=== PATIENT | male | born 1940 | race Caucasian/White ===

== ENCOUNTER → 2017-05-07 | Outpatient (REF) | payer OTHER ==
[~2017-05-07] MED LIST: ACET1TAB17 PO; ALDA25TA2 PO; ASPI1TAB PO; DEMA20TA6 PO; DOXY-278 PO; FERR1TAB8 PO; FERR325T3 PO; FURO40TA2 PO; FURO80TA2 PO; GABA-279 PO; INSUH10VL SC; INSULANT SC; ISOS30TA4 PO; LISI-538 PO; LISI40TAB PO; LOPE2CA PO; METO12TA PO; METO25TAB PO; MUCI600T37 PO; PANT40TA2 PO; SIMV10TA2 PO; TRAM50TA2 PO; TROS20TA3 PO; VITA-112 PO
[2017-05-07 19:59] LABS: PERCENT SATURATION 13.2 % (19.7-50.0)
== END ==
LOC: M LAB REF 16:49
PROVIDERS: ATTEND Internal Medicine Nephrology
DX: N18.4 Chronic kidney disease, stage 4 (severe) (principal); D63.1 Anemia in chronic kidney disease; E11.22 Type 2 diabetes mellitus with diabetic chronic kidney disease

== ENCOUNTER 2017-05-17 08:35 | Outpatient (CLI) | payer OTHER ==
[~2017-05-17] VITALS: Ht 188 cm; Wt 154.5 kg
[~2017-05-17 08:35] MED LIST changes: -ALDA25TA2 PO; -DEMA20TA6 PO; -DOXY-278 PO; -FERR1TAB8 PO; -FERR325T3 PO; -FURO80TA2 PO; -GABA-279 PO; -LISI-538 PO; -LOPE2CA PO; -MUCI600T37 PO; -PANT40TA2 PO; -TRAM50TA2 PO
[2017-05-17] MEDS ORDERED: IRON SUCROSE 475 MG in NS 250 ML IV ONE (09:00)
[2017-05-17] MEDS ORDERED: IRON SUCROSE 25 MG in NS 50 ML IV ONE (09:00)
[2017-06-16] MEDS ORDERED: GABA-279 PO (03:12)
[2017-06-16] MEDS ORDERED: FERR325T3 PO (03:13)
[2017-06-16] MEDS ORDERED: LISI-538 PO (03:55)
[2017-06-16] MEDS ORDERED: TRAM50TA2 PO (03:55)
[2017-06-16] MEDS ORDERED: FURO80TA2 PO (03:55)
[2017-06-16] MEDS ORDERED: ISOS30TA4 PO (03:55)
[2017-06-21] MEDS ORDERED: DEMA20TA6 PO (10:00)
[2017-06-21] MEDS ORDERED: ALDA25TA2 PO (10:00)
[2017-06-21] MEDS ORDERED: FERR1TAB8 PO (10:00)
[2017-06-21] MEDS ORDERED: LOPE2CA PO (10:00)
[2017-06-21] MEDS ORDERED: MUCI600T37 PO (10:00)
[2017-06-21] MEDS ORDERED: PANT40TA2 PO (10:00)
[2017-06-21] MEDS ORDERED: DOXY-278 PO (10:00)
== END 2017-05-17 14:45 | disposition home or self-care (01) ==
LOC: M INFU 08:35
PROVIDERS: ATTEND Internal Medicine Nephrology
DX: D50.9 Iron deficiency anemia, unspecified (principal); Z87.891 Personal history of nicotine dependence; Z96.1 Presence of intraocular lens; Z79.82 Long term (current) use of aspirin; Z79.4 Long term (current) use of insulin; Z79.899 Other long term (current) drug therapy
CPT/HCPCS: 96365; 96366; J1756

== ENCOUNTER → 2017-05-23 | Outpatient (CLI) | payer OTHER ==
[~2017-05-23] MED LIST changes: +ALDA25TA2 PO; +DEMA20TA6 PO; +DOXY-278 PO; +FERR1TAB8 PO; +FERR325T3 PO; +FURO80TA2 PO; +GABA-279 PO; +LISI-538 PO; +LOPE2CA PO; +MUCI600T37 PO; +PANT40TA2 PO; +TRAM50TA2 PO
--- NOTE | 2017-05-23 12:51 | REP ---
Renal and bladder ultrasound: The kidneys are normal size. Right kidney measures 4.4 x 7.3 x 6.3 cm. Left kidney measures 4.7 months and 2 x 6.2 cm. There is normal echogenicity of the right renal cortex. Left renal cortex is hyperechoic. There is no hydronephrosis on the right on the left. There is a 1.2 cm left renal upper pole cyst versus artifact from a patel. No renal masses are identified. Calcified atheroma in renal vessels is identified. No calculi are identified. Impression: Left renal upper pole cyst. The left renal cortex is hyperechoic. No masses or calculi. No hydronephrosis. Bladder ultrasound: The filled bladder contains for an 52 ml of fluid. Postvoid bladder contains 81 ml fluid. Postvoid residual is 18%. No bladder wall masses or cysts are identified by ultrasound. Signed by Shayne Albert MD 05/23/2017 12:42 P
== END ==
LOC: M RAD 10:38
PROVIDERS: ATTEND Internal Medicine Nephrology
DX: N18.4 Chronic kidney disease, stage 4 (severe) (principal)

== ENCOUNTER 2017-07-16 12:05 | Inpatient (IN) | payer MEDICARE, OTHER ==
[~2017-07-16] VITALS: Ht 188 cm; Wt 154.2 kg
[2017-07-16] MEDS ORDERED: FEBU40TA PO (12:29)
[2017-07-16] MEDS ORDERED: METO25TA PO (12:29)
[2017-07-16] MEDS ORDERED: PANTOPRAZOLE 40MG INJ (PROTONIX) (C9113) IV ONE (13:15)
--- NOTE | 2017-07-16 14:02 | REP ---
Clinical: Dyspnea on exertion . Comparison: 06/16/2017 . Technique: PA and lateral. Findings: The mediastinum and cardiac silhouette are stable and mild cardiomegaly is again suggested. The lung bashir are clear and without acute consolidation, effusion, or pneumothorax. The skeletal structures are intact and normal. Impression: 1. No acute cardiopulmonary process. Signed by Tavon Samayoa MD 07/16/2017 01:53 P
[2017-07-16] MEDS ORDERED: SIMV20TA2 PO (14:24)
[2017-07-16] MEDS ORDERED: PANT40TA2 PO (14:24)
[2017-07-16] MEDS ORDERED: TORS20TA2 PO (14:24)
[2017-07-16] MEDS ORDERED: METO50TA7 PO (14:24)
[2017-07-16 14:32] LABS: BASO % 0.4 % (0.0-1.0); EOS # 0.1 10^3/uL (0.0-0.50); EOS % 1.9 % (0.0-3.0); IMMATURE GRANULOCYTE % 0.6 % (0-0); LYMPH # 0.9 10^3/uL (1.5-4.5); LYMPH % 12.4 % (24.0-44.0); MEAN CORPUSCULAR HEMOGLOBIN 28.9 pg (27.0-33.0); MEAN CORPUSCULAR HGB CONC 31.1 g/dl (32.0-36.5); MEAN CORPUSCULAR VOLUME 93.2 fl (80.0-96.0); MONO # 0.6 10^3/uL (0.0-0.8); MONO % 9.2 % (0.0-5.0); NEUTROPHILS # 5.2 10^3/uL (1.8-7.7); NEUTROPHILS % 75.5 % (36.0-66.0); PLATELET COUNT, AUTOMATED 120 10^3/uL (150-450); RED CELL DISTRIBUTION WIDTH 16.2 % (11.5-14.5); WHITE BLOOD COUNT 6.9 10^3/uL (4.0-10.0)
[2017-07-16 14:38] LABS: INR 1.31
[2017-07-16 14:43] LABS: ALBUMIN 2.6 GM/DL (3.2-5.2); ALBUMIN/GLOBULIN RATIO 0.81 (1.00-1.93); BILIRUBIN,DIRECT 0.3 MG/DL (0.0-0.2); BILIRUBIN,TOTAL 0.7 MG/DL (0.2-1.0); CALCIUM LEVEL 8.5 MG/DL (8.8-10.2); CREATININE FOR GFR 2.6 MG/DL (0.70-1.30); GLOMERULAR FILTRATION RATE 25.5 (>42); POTASSIUM SERUM 4.3 MEQ/L (3.5-5.1); TOTAL PROTEIN 5.8 GM/DL (6.4-8.2)
[2017-07-16] MEDS ORDERED: PANTOPRAZOLE SODIUM 40 MG in D5W 50 ML IV SCH (15:45)
[2017-07-16] MEDS ORDERED: ONDANSETRON 4MG/2ML VIAL (J2405) IV PRN (17:30)
[2017-07-16] MEDS ORDERED: MOM 30ML SUSPENSION UDC PO ONE (17:45)
[2017-07-16] MEDS ORDERED: ISOSORBIDE MON. (IMDUR) 30 MG XR TAB PO ONE (18:00)
[2017-07-16] MEDS: HumaLOG INSULIN (NovoLOG) PER UNIT SC SCH (18:00)
[2017-07-16] MEDS ORDERED: DEXTROSE 50% 50 ML SYRINGE IV PRN (18:15)
[2017-07-16] MEDS ORDERED: GLUCAGON FOR INJ 1 MG VIAL (J1610) SC PRN (18:15)
[2017-07-16] MEDS ORDERED: FUROSEMIDE 100 MG/10 ML VIAL (J1940) IV ONE (18:15)
[2017-07-16] MEDS ORDERED: GLUCOSE 4 GM CHEW TABLET PO PRN (18:15)
--- NOTE | 2017-07-16 18:37 | ECGEPIP ---
Stationary ECG Study [facility] - ED Test Date: 2017-07-16 Pat Name: MOLINA CRUZ Department: Room: - Gender: M Planning Advisor: patty : 1940 Requested By: LISSETT Rodriguez Order Number: [id number] Reading MD: Sourav Salvador Measurements Intervals [place] Rate: 65 P: -20 HI: 126 QRS: 28 QRSD: 145 T: -8 QT: 492 QTc: 515 Interpretive Statements SINUS RHYTHM RIGHT BUNDLE BRANCH BLOCK SIMILAR TO 06/16/17 Electronically Signed On 07-16-2017 18:37:38 EST by Sourav Salvador
[2017-07-16] MEDS ORDERED: GOLYTELY SOLN 4000 ML BTL PO ONE (19:00)
--- NOTE | 2017-07-16 19:15 | HPEPDOC ---
General Date of Admission 07/16/17 Other Providers PCP: Dr. Scar Galeana Nephrology: Dr. Emory Aggarwal Orthopaedic: Dr. Audi García Press Leader: Dr. Rush Podiatry: Dr. 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 PMH significant for CHF, HLD, HTN, ASIF on CPAP, CKD stage III, and DM2 insulin-dependent. Patient admits to dark stools and malaise for over a month. Associated with nausea, dizziness, and limited walking due to generalized fatigue. Patient has also had diarrhea for the past 2 days, and a decreased appetite over the past year, and a 17 pound weight loss in the past month. Patient reports he has never had a colonoscopy or an EGD due to personal hesitance, but is willing to get a colonoscopy during this admission. Patient is on iron pills, and has a history of iron transfusions and PRBC transfusions. All other ROS is negative, including chest pain, shortness of breath, vomiting, abdominal pain, bright red blood per rectum , hematuria. In the ED, H&H were 5.5 and 17.7 respectively, and Hemoccult positive. BUN/ creatinine were 69 and 2.6 respectively, and patient had hypertensive urgency with SBP above 200. Pt was transfused 2 units PRBC in ED and started on Protonix drip. Home Medications Scheduled Cholecalciferol (Vitamin D-1000) 1,000 Unit Tab, 1,000 UNIT PO QHS, (Reported) Febuxostat (Uloric) 40 Mg Tab, 40 MG PO DAILY, (Reported) Ferrous Sulfate (Ferrous Sulfate) 325 Mg Tab, 325 MG PO DAILY, (Reported) Gabapentin (Gabapentin) 100 Mg Cap, 200 MG PO QHS, (Reported) Insulin Aspart (Novolog) 100 U/Ml Inj, 1 DOSE SC AC, (Reported) PER SLIDING SCALE Insulin Glargine (Lantus) 1 Units/0.01 Ml Susp, 70 UNITS SC QHS, (Reported) Isosorbide Mononitrate (Isosorbide Mononitrate ER) 60 Mg Tab, 60 MG PO DAILY Metolazone (Metolazone) 2.5 Mg Tab, 2.5 MG PO Q2D, (Reported) Metoprolol Tartrate (Metoprolol Tartrate) 50 Mg Tab, 50 MG PO BID Pantoprazole Sodium (Pantoprazole Sodium) 40 Mg Tab, 40 MG PO DAILY, (Reported) Simvastatin (Simvastatin) 20 Mg Tab, 10 MG PO QHS, (Reported) Torsemide (Torsemide) 20 Mg Tab, 40 MG PO BID Trospium Chloride (Trospium Chloride) 20 Mg Tab, 20 MG PO QHS, (Reported) Scheduled PRN Acetaminophen (Acetaminophen) 325 Mg Tab, 650 MG PO Q6H PRN for PAIN, (Reported) Tramadol HCl (Tramadol HCl) 50 Mg Tab, 50 MG PO Q4H PRN for PAIN, (Reported) FOR SEVERE PAIN ONLY Allergies Coded Allergies: No Known Allergies (Unverified , 12/28/15) Past Medical History Medical History CHF HLD HTN ASIF, CPAP at night GERD BPH CTD stage III DM 2, insulin-dependent Overactive bladder, incontinent Right bundle-branch block Gout Chronic b/l LE edema Surgical History b/l cataract Family History Father: Stroke Mother: NC 3 brothers: All diabetic No cancers Social History Denies alcohol, smoking, drugs Lives at home with Review of Symptoms Constitutional: Reports: Fatigue, Lethargy, Denies: Chills, Fever, Night Sweats, Weakness Eyes: Denies: Pain, Vision change ENT: Denies: Head Aches, Ear Pain, Dysphagia, Epistaxis Skin: Reports: Lesions, Bruising, Denies: Rash Pulmonary: Denies: Dyspnea, Cough Cardiovascular: Denies: Chest Pain, Palpitations, Edema, Lt Headedness Gastrointestinal: Reports: Nausea, Diarrhea, Melena (dark tarry stools), Denies: Vomiting, Abdominal Pain, Constipation, Hematochezia Genitourinary: Denies: Hematuria Hematologic: Denies: Bruising, Bleeding Excessively Endocrine: Denies: Heat Intolerance, Cold Intolerance Musculoskeletal: Reports: Shoulder Pain (left, chronic), Joint Pain (b/l knees) Neurological: Denies: Weakness, Numbness Physical Examination General Exam: Positive: Alert, Cooperative, No Acute Distress Eye Exam: Positive: Conjunctiva & lids normal, EOMI, Negative: Sclera icteric, Ptosis ENT Exam: Positive: Atraumatic, Mucous membr. moist/pink, Tongue Midline, Other ENT (upper and lower dentuers) Neck Exam: Positive: Supple, +2 carotid pulse wo bruit, Negative: Lymphadenopathy Chest Exam: Positive: Clear to auscultation, Diminished, Negative: Wheezing Heart Exam: Positive: Rate Normal, Regular Rhythm, Normal S1, Normal S2, Other (distant heart & lung sounds due to body habitus) Abdomen Exam: Positive: Normal bowel sounds, Soft, Other (protuberant), Negative: Tenderness Extremity Exam: Positive: Normal pulses (2+ radial b/l), Swelling (LE chronic) , Negative: Cyanosis, Edema, Tenderness Skin Exam: Positive: Nl turgor and temperature, Lesion (b/l LE shins) Neuro Exam: Positive: Normal Speech, Strength at 5/5 X4 ext, Normal Tone, Sensation Intact Psych Exam: Positive: Mental status NL, Mood NL, Memory Intact, Oriented x 3 Vital Signs Vital Signs Date Time Temp Pulse Resp B/P (MAP) Pulse Ox O2 Delivery O2 Flow Rate FiO2 07/16/17 14:39 68 18 164/68 (100) 97 Nasal Cannula 2.0 07/16/17 12:20 98.6 Laboratory Data Labs 24H Laboratory Tests 2 07/16/17 13:58: Immature Granulocyte % (Auto) 0.6H, White Blood Count 6.9, Red Blood Count 1.90L , Hemoglobin 5.5*L, Hematocrit 17.7L, Mean Corpuscular Volume 93.2, Mean Corpuscular Hemoglobin 28.9, Mean Corpuscular Hemoglobin Concent 31.1L, Red Cell Distribution Width 16.2H, Platelet Count 120L, Neutrophils (%) (Auto) 75.5H , Lymphocytes (%) (Auto) 12.4L, Monocytes (%) (Auto) 9.2H, Eosinophils (%) (Auto ) 1.9, Basophils (%) (Auto) 0.4, Neutrophils # (Auto) 5.2, Lymphocytes # (Auto) 0.9L, Monocytes # (Auto) 0.6, Eosinophils # (Auto) 0.1, Basophils # (Auto) 0.0, Immature Granulocyte # (Auto) 0.0, Nucleated Red Blood Cells % (auto) 0.0, Prothrombin Time 16.6H, Prothromb Time International Ratio 1.31, Activated Partial Thromboplast Time 28.3, Anion Gap 11, Glomerular Filtration Rate 25.5L, Calcium Level 8.5L, Aspartate Amino Transf (AST/SGOT) 31, Alanine Aminotransferase (ALT/SGPT) 30, Alkaline Phosphatase 69, Total Bilirubin 0.7, Direct Bilirubin 0.3H, Total Protein 5.8L, Albumin 2.6L, Albumin/Globulin Ratio 0.81L CBC/BMP Laboratory Tests 07/16/17 13:58 Red Blood Count 1.90 L, Mean Corpuscular Volume 93.2, Mean Corpuscular Hemoglobin 28.9, Mean Corpuscular Hemoglobin Concent 31.1 L, Red Cell Distribution Width 16.2 H, Neutrophils (%) (Auto) 75.5 H, Lymphocytes (%) (Auto ) 12.4 L, Monocytes (%) (Auto) 9.2 H, Eosinophils (%) (Auto) 1.9, Basophils (%) (Auto) 0.4, Neutrophils # (Auto) 5.2, Lymphocytes # (Auto) 0.9 L, Monocytes # ( Auto) 0.6, Eosinophils # (Auto) 0.1, Basophils # (Auto) 0.0 Assessment/Plan Symptomatic anemia Patient was noted to have hemoglobin of 5 while at nephrology's office. Admits to fatigue and dark stools for over a month. Has history of blood and iron transfusions in previous admissions. Reportedly Hemoccult positive in ED. CXR negative. transfused 2U PRBC in ED, follow H&H q6h orthostatic vitals q8h on Protonix drip Dr. Corey consulted. Appreciated GI's assistance hold home Ferrous sulfate HTN Urgency SBP > 200 on admission will increase home Imdur from 30 to 60mg continue home Metoprolol start IV Hydralazine 10mg q6h for SBP>150 DM2, insulin-dependant hold home meds. Start ISS with ~half his home Levemir dose at 25U inpatient continue home Gabapentin fingersticks q6h CKD III currently appears ~baseline Cr, but will be holding home Metolazone & Torsemide as pt will be NPO for scope hold fluids as pt will be transfused PRBC and scoped Dr. Aggarwal consulted. Appreciate Nephrology's assistance HLD continue home statin Gout continue home Febuxostat Hx CHF no acute decompensation monitor fluid status as pt is transfused PRBC hold home Torsemide for for possible GI scope daily weights and I/O ASIF on ASIF protocol. May use home CPAP Overactive bladder continue home Trospium DVT ppx MIRA/SCD. Avoid anticoagulation due to anemia/bleed DISPOSITION: will admit to hospital under Dr. Quintana's service. Plan / VTE VTE Prophylaxis Ordered?: Yes (MIRA/SCD) GME ATTESTATION GME ATTESTATION My faculty preceptor for this patient encounter was physically present during the encounter and was fully available. All aspects of the patient interview, examination, medical decision making process, and medical care plan development were reviewed and approved by the faculty preceptor. The faculty preceptor is aware and concurs with the plan as stated in the body of this note and will attest to such by his/her cosignature. ATTENDING NOTE I have both independently examined this patient as well as reviewed the H&P. I have discussed in detail with the resident the findings and plan of treatment as documented in the residents note. I will continue to follow the patient and offer further guidance to the patients care as necessary during this hospital stay. JANICE Horn MD, DO Jul 16, 2017 17:22 STERLING ELIZONDO MD Jul 23, 2017 09:28
[2017-07-16] MEDS ORDERED: NS 1,000 ML IV SCH (20:30)
[2017-07-16] MEDS: SIMVASTATIN 10 MG TAB PO SCH (21:00)
[2017-07-16] MEDS: METOPROLOL TART 25 MG TABLET PO SCH (21:00)
[2017-07-16] MEDS: TROSPIUM 20 MG TAB PO SCH (21:00)
[2017-07-16] MEDS: GABAPENTIN 100 MG CAP PO SCH (21:00)
[2017-07-16] MEDS: VITAMIN D 1,000 INTERNATIONAL UNITS TABLET PO SCH (21:00)
[2017-07-16] MEDS: LEVEMIR (INSULIN DETEMIR) 1 UNITS/0.01ML SC SCH (21:00)
[2017-07-16] MEDS: PANTOPRAZOLE SODIUM 40 MG in D5W 50 ML IV SCH ×2 (21:05→23:00)
[2017-07-17] VITALS (19 sets, daily range): BP systolic 140–198; BP diastolic 58–92
[2017-07-17] MEDS: PANTOPRAZOLE SODIUM 40 MG in D5W 50 ML IV SCH ×5 (04:03→21:42)
[2017-07-17] MEDS ORDERED: GOLYTELY SOLN 4000 ML BTL PO ONE (05:00)
[2017-07-17] MEDS: HumaLOG INSULIN (NovoLOG) PER UNIT SC SCH ×5 (06:15→21:41)
[2017-07-17] MEDS: hydrALAZINE INJ 20 MG/ML VIAL IV SCH ×4 (06:17→17:00)
[2017-07-17] MEDS: METOPROLOL TART 25 MG TABLET PO SCH ×2 (09:00→21:26)
[2017-07-17] MEDS ORDERED: FERROUS SULFATE 325MG TAB PO SCH (09:00)
[2017-07-17] MEDS ORDERED: metOLazone 2.5 MG TAB PO SCH (09:00)
[2017-07-17] MEDS: FEBUXOSTAT 40 MG TABLET (ULORIC) PO SCH (09:00)
[2017-07-17] MEDS ORDERED: ISOSORBIDE MON. (IMDUR) 30 MG XR TAB PO SCH (09:00)
[2017-07-17] MEDS ORDERED: TORSEMIDE 20 MG TAB PO SCH (09:00)
[2017-07-17] MEDS: ISOSORBIDE MON. (IMDUR) 30 MG XR TAB PO SCH (09:01)
[2017-07-17] MEDS ORDERED: PROPOFOL 200 MG/20 ML VIAL As Ordered ONE ×2 (13:28→15:16)
[2017-07-17] MEDS ORDERED: LIDOCAINE 2% INJ 100 MG/5 ML SDV (FOR ANES.) As Ordered ONE (13:28)
[2017-07-17 14:13] LABS: MEAN CORPUSCULAR HEMOGLOBIN 29.5 pg (27.0-33.0); MEAN CORPUSCULAR HGB CONC 33.8 g/dl (32.0-36.5); MEAN CORPUSCULAR VOLUME 87.2 fl (80.0-96.0); PLATELET COUNT, AUTOMATED 106 10^3/uL (150-450); RED CELL DISTRIBUTION WIDTH 16.4 % (11.5-14.5); WHITE BLOOD COUNT 7.9 10^3/uL (4.0-10.0)
[2017-07-17 14:35] LABS: CALCIUM LEVEL 8.3 MG/DL (8.8-10.2); CREATININE FOR GFR 2.38 MG/DL (0.70-1.30); GLOMERULAR FILTRATION RATE 28.3 (>42); MAGNESIUM LEVEL 1.8 MG/DL (1.8-2.4); PHOSPHORUS LEVEL 2.6 MG/DL (2.5-4.9)
--- NOTE | 2017-07-17 15:18 | ROOR ---
Patient Name: Tomasa Robles Procedure Date: 07/17/2017 2:29 PM Date of : 1940 Age: 76 Room: [facility] Gender: Male Note Status: Finalized Procedure: Upper GI endoscopy Indications: Acute post hemorrhagic anemia, Iron deficiency anemia secondary to chronic blood loss, Iron deficiency anemia, Portal hypertension rule out esophageal varices Providers: Alhaji COREY MD Referring MD: Scar Galeana Md, Emory Aggarwal Do Requesting Provider: Medicines: Monitored Anesthesia Care Complications: No immediate complications. Procedure: Pre-Anesthesia Assessment: - The heart rate, respiratory rate, oxygen saturations, blood pressure, adequacy of pulmonary ventilation, and response to care were monitored throughout the procedure. The Endoscope was introduced through the mouth, and advanced to the third part of duodenum. The upper GI endoscopy was accomplished without difficulty. The patient tolerated the procedure well. Findings: The examined esophagus was normal. (no varices) Mild portal hypertensive gastropathy was found in the gastric antrum. The exam of the stomach was otherwise normal. (no varices) The examined duodenum was normal. Impression: - Normal esophagus. - Mild antral portal hypertensive gastropathy. - Stomach is otherwise normal. - Normal examined duodenum. - (no varices seen in esophagus nor in cardia) - No specimens collected. Recommendation: - Use sucralfate tablets 1 gram PO QID. - Use Prilosec (omeprazole) 40 mg PO BID. - Observe patient's clinical course. - Start/continue a Non-selective Beta Racquel such as Propranolol or Nadolol, titrate to heart rate. Alhaji Corey MD Alhaji COREY MD 07/17/2017 3:17:53 PM This report has been signed electronically. Number of Addenda: 0 Note Initiated On: 07/17/2017 2:29 PM Estimated Blood Loss: Estimated blood loss: none.
--- NOTE | 2017-07-17 15:23 | ROOR ---
Patient Name: Tomasa Robles Procedure Date: 07/17/2017 2:31 PM Date of : 1940 Age: 76 Room: [facility] Gender: Male Note Status: Finalized Procedure: Colonoscopy Indications: Acute post hemorrhagic anemia, Iron deficiency anemia secondary to chronic blood loss, Iron deficiency anemia Providers: Alhaji COREY MD Referring MD: Scar Galeana Md, Emory Aggarwal Do Requesting Provider: Medicines: Monitored Anesthesia Care Complications: No immediate complications. Procedure: Pre-Anesthesia Assessment: - The heart rate, respiratory rate, oxygen saturations, blood pressure, adequacy of pulmonary ventilation, and response to care were monitored throughout the procedure. The Colonoscope was introduced through the anus and advanced to the cecum, identified by appendiceal orifice and ileocecal valve. The colonoscopy was performed without difficulty. The patient tolerated the procedure well. The quality of the bowel preparation was good. Findings: The perianal and digital rectal examinations were normal. Six sessile polyps were found in the sigmoid colon and descending colon. The polyps were 4 to 7 mm in size. These polyps were removed with a cold snare. Resection and retrieval were complete. A 10 mm polyp was found in the splenic flexure. The polyp was sessile. Polypectomy was not attempted. Coagulation for tissue destruction using argon plasma at 0.8 liters/minute and 20 almazan was successful. Six sessile polyps were found in the ascending colon and cecum. The polyps were 4 to 6 mm in size. These polyps were removed with a cold snare. Resection and retrieval were complete. Multiple small-mouthed diverticula were found in the sigmoid colon. Internal hemorrhoids were found during retroflexion. The hemorrhoids were medium-sized. The exam was otherwise without abnormality on direct and retroflexion views. Impression: - Six 4 to 7 mm polyps in the sigmoid colon and in the descending colon, removed with a cold snare. Resected and retrieved. - One 10 mm polyp at the splenic flexure. Resection not attempted. Treated/ablated with argon plasma coagulation (APC). - Six 4 to 6 mm polyps in the ascending colon and in the cecum, removed with a cold snare. Resected and retrieved. - Mild diverticulosis in the sigmoid colon. - Internal hemorrhoids. - The examination was otherwise normal on direct and retroflexion views. Recommendation: - Telephone endoscopist for pathology results in 2 weeks. - If the pathology report reveals adenomatous tissue, then repeat the colonoscopy for surveillance of multiple adenomas in 1 year. Alhaji Corey MD Alhaji COREY MD 07/17/2017 3:22:59 PM This report has been signed electronically. Number of Addenda: 0 Note Initiated On: 07/17/2017 2:31 PM Estimated Blood Loss: Estimated blood loss: none.
--- NOTE | 2017-07-17 16:44 | CR ---
DATE OF CONSULTATION: 07/17/2017 REQUESTING PHYSICIAN: Bev Molina DO REASON FOR CONSULTATION: Acute kidney injury, chronic kidney disease and severe symptomatic anemia. HISTORY OF PRESENT ILLNESS: Mr. Robles is a 76-year-old gentleman with known history of morbid obesity, type 2 diabetes, hypertension, hyperlipidemia, obstructive sleep apnea (ASIF), stage III of chronic kidney disease and congestive heart failure (CHF). He was admitted to [facility] yesterday due to symptomatic anemia with hemoglobin 5.8. He did report black colored stools over a month. He did have some nausea and felt dizzy. Patient is also noticed to have worsening kidney function and a nephrology consultation was requested. The patient is seen this morning in his room in the progressive care unit. The patient is currently undergoing bowel prep for upper and lower endoscopy. He has received 2 units of packed RBCs through the night and receiving another 2 units of packed RBCs today. PAST MEDICAL/SURGICAL HISTORY: Significant for: 1. Morbid obesity. 2. Obstructive sleep apnea on CPAP. 3. Hypertension. 4. Type 2 diabetes. 5. Hyperlipidemia. 6. Congestive heart failure (CHF). 7. History of gastroesophageal reflux disease (GERD). 8. History of benign prostatic hypertrophy (BPH). 9. History of chronic kidney disease stage III to stage IV. 10. History of overactive bladder. 11. History of gout. 12. History of right bundle branch block. 13. History of chronic stasis lower extremities. PAST SURGICAL HISTORY: Significant for: 1. Bilateral cataract surgery. FAMILY HISTORY: Father had a stroke and mother had coronary artery disease with heart attack. Three brothers all have diabetes. There is no history of end stage renal disease in his family. PERSONAL/SOCIAL HISTORY: Patient is and lives with his . Denies any alcohol, smoking or drug use. REVIEW OF SYSTEMS: Patient denies any fever or chills. He did report about 15 pounds weight loss over the last few months. Ears, nose and throat are unremarkable. Patient denies any nosebleed or sore throat. He has no sinus problems. He did feel dizzy but denies any headaches. Cardiovascular system is significant for a history of congestive heart failure (CHF). He denies any chest pain or palpitations. Respiratory system negative for cough or hemoptysis. Gastrointestinal (GI) system is significant for poor appetite and nausea. He reported black colored stools over the last few weeks. There is on history of coffee ground vomiting. At present, he denies any abdominal pain. Genitourinary () systems is significant for a history of benign prostatic hypertrophy (BPH). The patient denies any dysuria or hematuria. Musculoskeletal system is significant for morbid obesity and chronic stasis in his lower extremities. Endocrine system is significant for type 2 diabetes. There is no history of thyroid problems. He does have secondary hyperparathyroidism. Neurological system is negative for seizures or stroke. Hematological system is significant for anemia. He is not on any anticoagulation at present. Psychosocial system negative for depression or anxiety. Skin is negative for rash or ulcers. MEDICATIONS: Home medications included: - vitamin D 1000 units daily - Uloric 40 mg daily - ferrous sulfate 325 mg daily - gabapentin 200 mg at bedtime - NovoLog insulin per sliding scale - Lantus insulin 70 units at bedtime - Imdur 30 mg daily - metolazone 2.5 mg every two days - metoprolol 50 mg by mouth half a tablet twice a day - Protonix 40 mg daily - simvastatin 20 mg at bedtime - torsemide 40 mg daily ALLERGIES: Patient has no known drug allergies. PHYSICAL EXAMINATION: Temperature 97.8 degrees Fahrenheit, heart rate 62 per minute, and respiratory rate 20 per minute. Blood pressure 140/62 mmHg and oxygen saturation 96% on room air. Head is atraumatic. Pupils equal and reactive to light and sclera is anicteric. Oral mucosa is moist and healthy and there is no thrush or ulcers. Ears, nose and throat are unremarkable. Neck is supple and jugular venous distention (JVD) is difficult to be assessed. Heart sounds are regular and there is no pericardial friction rub. Lungs sounds clear to auscultation with moderate bilateral air entry. Abdomen is obese and nontender. Bowel sounds are present. Extremities have no cyanosis or clubbing. He has chronic stasis changes on lower extremities. Skin has no other rash or ulcers. Neurologically, he is awake, alert and oriented times three. LABORATORY DATA: On admission, his WBC count was 6.9, hemoglobin 5.5, and hematocrit 17.7. Sodium 141, and potassium 4.3. BUN 69 and creatinine 2.60. Glucose 144 and calcium 8.5. His baseline creatinine is know to be about 2.5 to 2.8 mg. Chest x-ray done in the emergency room showed no acute cardiopulmonary process. PROBLEMS: 1. Severe symptomatic anemia, most likely related to blood loss. I do not feel that his anemia is entirely related to chronic kidney disease. The patient did report black colored stools. He is going to have upper and lower endoscopy. He has already received 2 units of packed RBCs last night and is receiving 2 more units today. CBC should be checked after transfusion. Further plans depending upon findings of upper and lower endoscopy, which is scheduled for later this afternoon. 2. Acute kidney injury superimposed on chronic kidney disease. Patient is known to have at least stage III of chronic kidney disease at baseline. Acute renal failure is most likely related to acute blood loss and possible hypovolemia. At present, his diuretics are on hold. I suggest to monitor closely while he is being hydrated. We will resume his diuretics as needed. 3. History of congestive heart failure (CHF). At present, volume status is well compensated or slightly over diuresed. Diuretics remain on hold. We will monitor closely and consider to resume his diuretics when indicated. 4. Hypertension. Blood pressure is well controlled. He remains on low dose hydralazine and Imdur. I thank you for involving me in the care of Mr. Robles. I will follow him along with you.
--- NOTE | 2017-07-17 17:35 | IPN ---
DATE: 07/17/2017 SUBJECTIVE: The patient is seen and examined in the room after his upper endoscopy and colonoscopy procedures. The patient does not remember much because he is still feeling groggy after the procedures. The patient feels very hungry and is asking to restart a diet. OBJECTIVE: VITAL SIGNS: Temperature is 98.1, pulse is 73, respiratory rate 20, blood pressure 178/76, pulse oximetry is 97% in room air. GENERAL: Morbidly obese. No sign of acute distress. Alert and oriented times three. HEENT: Normocephalic, atraumatic. Extraocular motor grossly intact. CARDIOVASCULAR: Positive S1, S2, regular rate. LUNGS: Clear to auscultation bilaterally. ABDOMEN: Obese, soft, nontender, nondistended. Bowel sounds present. EXTREMITIES: Positive swelling. No cyanosis. Chronic venous stasis changes noted. LABORATORY DATA: WBC is 7.9, hemoglobin 9, hematocrit 26.6, platelet count is 106. Sodium is 139, potassium 4, chloride 103, carbon dioxide 27, BUN 57, creatinine is 2.38, GFR is 28.3, fasting glucose is 213, calcium is 8.3, phosphorous is 2.6, magnesium 1.6. Colonoscopy report showed multiple polyps. Mild diverticulosis in the sigmoid colon. Internal hemorrhoids. Upper endoscopy report showed normal findings. ASSESSMENT AND PLAN: 1. Symptomatic anemia. On admission, the patient was found to have a hemoglobin of 5.5 with a hematocrit of 17.7. Since admission, the patient received five units of packed red blood cell transfusion, and the patient was brought down to the procedure room and the patient received an upper endoscopy and colonoscopy by Dr. Corey. No significant noted. Continue to monitor the patient on telemetry, diet is resumed. The patient is to start back on before meals and at bedtime sliding scale. 2. Congestive heart failure. Currently the patient is asymptomatic. Continue to monitor. No sign of fluid overload. 3. Hypertension. Patient is on hydralazine, isosorbide mononitrate and metoprolol tartrate. 4. Chronic kidney disease, stage III. Nephrology is assisting on case. Appreciate Dr. Aggarwal's input. 5. Gout. On Uloric. 6. History of left bundle branch block. 7. Insulin-dependent diabetes, on consistent carbohydrate diet, on sliding scale. 8. Obstructive sleep apnea (ASIF), on continuous positive airway pressure (CPAP) nightly. 9. Gastroesophageal reflux disease. 10. Hyperlipidemia. On simvastatin. 11. Hypertensive urgency on admission. Continue to monitor blood pressure. Dosage of Imdur was increased from 30 mg to 60 mg. The patient is on metoprolol. The patient is also on hydralazine 10 mg every 6 hours with holding parameter. 12. Deep vein thrombosis (DVT) prophylaxis. On compression.
[2017-07-17] MEDS: LEVEMIR (INSULIN DETEMIR) 1 UNITS/0.01ML SC SCH (21:00)
[2017-07-17] MEDS: GABAPENTIN 100 MG CAP PO SCH (21:27)
[2017-07-17] MEDS: SIMVASTATIN 10 MG TAB PO SCH (21:27)
[2017-07-17] MEDS: VITAMIN D 1,000 INTERNATIONAL UNITS TABLET PO SCH (21:27)
[2017-07-17] MEDS: TROSPIUM 20 MG TAB PO SCH (21:27)
[2017-07-18] VITALS (9 sets, daily range): BP systolic 140–187; BP diastolic 58–77
[2017-07-18 04:57] LABS: MEAN CORPUSCULAR HEMOGLOBIN 29.3 pg (27.0-33.0); MEAN CORPUSCULAR HGB CONC 33.2 g/dl (32.0-36.5); MEAN CORPUSCULAR VOLUME 88.2 fl (80.0-96.0); PLATELET COUNT, AUTOMATED 101 10^3/uL (150-450); RED CELL DISTRIBUTION WIDTH 16.6 % (11.5-14.5); WHITE BLOOD COUNT 8.3 10^3/uL (4.0-10.0)
[2017-07-18] MEDS: PANTOPRAZOLE SODIUM 40 MG in D5W 50 ML IV SCH ×3 (05:06→15:31)
[2017-07-18 05:16] LABS: CREATININE FOR GFR 2.32 MG/DL (0.70-1.30); GLOMERULAR FILTRATION RATE 29.1 (>42); MAGNESIUM LEVEL 1.7 MG/DL (1.8-2.4)
[2017-07-18] MEDS: hydrALAZINE INJ 20 MG/ML VIAL IV SCH ×4 (05:20→17:31)
[2017-07-18] MEDS ORDERED: MAGNESIUM OXIDE 400 MG TAB (MAG-OX) PO ONE (07:45)
[2017-07-18] MEDS: FEBUXOSTAT 40 MG TABLET (ULORIC) PO SCH (09:00)
[2017-07-18] MEDS ORDERED: PREVNAR 13 VACCINE SYRINGE (CPT CODE:90670) IM ONE (09:00)
[2017-07-18] MEDS: METOPROLOL TART 25 MG TABLET PO SCH (09:22)
[2017-07-18] MEDS: ISOSORBIDE MON. (IMDUR) 30 MG XR TAB PO SCH (09:23)
[2017-07-18] MEDS: HumaLOG INSULIN (NovoLOG) PER UNIT SC SCH ×4 (09:25→21:05)
[2017-07-18] MEDS ORDERED: TORSEMIDE 20 MG TAB PO ONE (10:00)
[2017-07-18] MEDS ORDERED: ALBUTEROL SULFATE 2.5 MG/0.5 ML INH NEB SOLN NEB PRN (12:30)
[2017-07-18] MEDS ORDERED: ACETAMINOPHEN TAB 650MG DOSE (2X325MG) PO PRN (14:45)
--- NOTE | 2017-07-18 19:39 | IPNPDOC ---
Text Note Date of Service The patient was seen on 07/18/17. NOTE SUBJECTIVE: The patient is seen and examined in the room. Discussed the result of scopes with the patient. OBJECTIVE: VITAL SIGNS: Listed below GENERAL: Morbidly obese. No sign of acute distress. Alert and oriented times three. HEENT: Normocephalic, atraumatic. Extraocular motor grossly intact. CARDIOVASCULAR: Positive S1, S2, regular rate. LUNGS: Clear to auscultation bilaterally. ABDOMEN: Obese, soft, nontender, nondistended. Bowel sounds present. EXTREMITIES: Positive swelling. No cyanosis. Chronic venous stasis changes noted. LABORATORY DATA: Listed below. Colonoscopy report showed multiple polyps. Mild diverticulosis in the sigmoid colon. Internal hemorrhoids. Upper endoscopy report showed normal findings. ASSESSMENT AND PLAN: 1. Symptomatic anemia. On admission, the patient was found to have a hemoglobin of 5.5 with a hematocrit of 17.7. Since admission, the patient received five units of packed red blood cell transfusion, and the patient was brought down to the procedure room and the patient received an upper endoscopy and colonoscopy by Dr. Corey. No significant finding is noted. Continue to monitor the patient on telemetry, diet is resumed. The patient is to start back on before meals and at bedtime sliding scale. switched IV Protonix to PO Prilosec per recommendation. 2. Congestive heart failure. Currently the patient is asymptomatic. Continue to monitor. No sign of fluid overload. 3. Hypertension. Patient is on hydralazine, isosorbide mononitrate and metoprolol tartrate. 4. Chronic kidney disease, stage III. Nephrology is assisting on case. Appreciate Dr. Aggarwal's input. 5. Gout. On Uloric. 6. History of left bundle branch block. 7. Insulin-dependent diabetes, on consistent carbohydrate diet, on sliding scale. 8. Obstructive sleep apnea (ASIF), on continuous positive airway pressure (CPAP) nightly. 9. Gastroesophageal reflux disease. 10. Hyperlipidemia. On simvastatin. 11. Hypertensive urgency on admission. Continue to monitor blood pressure. Dosage of Imdur was increased from 30 mg to 60 mg. The patient is on metoprolol. The patient is also on hydralazine 10 mg every 6 hours with holding parameter. 12. Deep vein thrombosis (DVT) prophylaxis. On compression. VS,Fishbone, I+O VS, Fishbone, I+O Laboratory Tests 07/17/17 20:16 07/18/17 04:50 Red Blood Count 3.04 L, Mean Corpuscular Volume 88.2, Mean Corpuscular Hemoglobin 29.3, Mean Corpuscular Hemoglobin Concent 33.2, Red Cell Distribution Width 16.6 H, Calcium Level 8.0 L Vital Signs Date Time Temp Pulse Resp B/P (MAP) Pulse Ox O2 Delivery O2 Flow Rate FiO2 07/18/17 18:00 76 18 95 Room Air 07/18/17 17:31 150/67 07/18/17 15:59 97.2 07/16/17 18:47 2.0 I&O- Last 24 Hours up to 6 AM 07/19/17 06:00 Intake Total 1315 ml Output Total 300 ml Balance 1015 ml CAMELIA QUINTANA DO Jul 18, 2017 19:39
--- NOTE | 2017-07-18 19:48 | IPN ---
DATE: 07/18/2017 Mr. Robles is seen this morning on his bedside. He is feeling much better today and denies any nausea, vomiting, dyspnea or chest pain. He underwent upper and lower endoscopies. He was found to have multiple polyps, which were removed. There was no active bleeding noticed. The patient has received a total of 5 units of packed RBCs during this admission. PHYSICAL EXAMINATION: Temperature 97.2 degrees Fahrenheit, heart rate 70 per minute and respiratory rate 20 per minute. Blood pressure 150/67 mmHg and oxygen saturation 95% on room air. Head: Is atraumatic. Pupils equal and reactive to light and sclera is anicteric. Nose and throat are unremarkable. Neck is supple and jugular venous distention (JVD) is minimally elevated. Heart: Sounds are regular and lungs sound clear to auscultation. Abdomen: Obese and nontender. Bowel sounds are normal. Extremities have no cyanosis or clubbing. She has chronic leg edema on his both legs. Neurologically he is awake, alert and oriented times three. Today's labs show WBC count 8.3, hemoglobin 8.9 and hematocrit 26.8. Platelets 105. Sodium 139 and potassium 4.0. BUN 52 and creatinine 2.32. Glucose 175 and calcium 8.0. PROBLEMS: 1. Acute renal failure superimposed on chronic kidney disease. Most likely related to hypovolemia and possible hypotension. Kidney function has slightly improved over the last 48 hours. The patient has been off diuretics, which may have contributed to decrease in the BUN and creatinine. 2. Congestive heart failure. His volume status is decompensated now and I am going to resume his diuretic. The patient will be started on torsemide 40 mg daily with first dose today. 3. Anemia. The patient had most likely blood loss anemia. No evidence of active bleeding was noticed on upper and lower endoscopy. His anemia improved following transfusion of 5 units of packed RBCs. It is important to note that he had received transfusions even during his prior hospitalization in May. Further workup will be deferred to GI risk control consultant. 4. Diabetes. His diabetes seems to be well controlled.
[2017-07-18] MEDS: GABAPENTIN 100 MG CAP PO SCH (20:54)
[2017-07-18] MEDS: OMEPRAZOLE 20 MG CAP PO SCH (20:57)
[2017-07-18] MEDS: METOPROLOL TART 50 MG TAB PO SCH (20:57)
[2017-07-18] MEDS: SIMVASTATIN 10 MG TAB PO SCH (20:58)
[2017-07-18] MEDS: TROSPIUM 20 MG TAB PO SCH (20:58)
[2017-07-18] MEDS: VITAMIN D 1,000 INTERNATIONAL UNITS TABLET PO SCH (20:58)
[2017-07-18] MEDS: LEVEMIR (INSULIN DETEMIR) 1 UNITS/0.01ML SC SCH (20:59)
[2017-07-19] MEDS: hydrALAZINE INJ 20 MG/ML VIAL IV SCH ×3 (01:21→12:22)
[2017-07-19 04:00] VITALS: BP_SYST 135; BP_SYST 136; BP_SYST 143; BP_SYST 149; BP_DIAS 56; BP_DIAS 61; BP_DIAS 66; BP_DIAS 89
[2017-07-19 05:40] LABS: MEAN CORPUSCULAR HEMOGLOBIN 28.7 pg (27.0-33.0); MEAN CORPUSCULAR HGB CONC 32.4 g/dl (32.0-36.5); MEAN CORPUSCULAR VOLUME 88.5 fl (80.0-96.0); PLATELET COUNT, AUTOMATED 100 10^3/uL (150-450); WHITE BLOOD COUNT 8.3 10^3/uL (4.0-10.0)
[2017-07-19 06:00] LABS: CALCIUM LEVEL 7.7 MG/DL (8.8-10.2); CREATININE FOR GFR 2.54 MG/DL (0.70-1.30); GLOMERULAR FILTRATION RATE 26.2 (>42); MAGNESIUM LEVEL 1.5 MG/DL (1.8-2.4); POTASSIUM SERUM 4.2 MEQ/L (3.5-5.1)
[2017-07-19] MEDS: MAG SULF 1GM/100ML (MAG RUN) 1 GM in APPROPRIATE DILUENT 1 EA IV SCH ×2 (06:51→08:29)
[2017-07-19 08:00] VITALS: BP 148/82
[2017-07-19] MEDS: ISOSORBIDE MON. (IMDUR) 30 MG XR TAB PO SCH (08:29)
[2017-07-19] MEDS: HumaLOG INSULIN (NovoLOG) PER UNIT SC SCH ×2 (08:29→12:44)
[2017-07-19] MEDS: FEBUXOSTAT 40 MG TABLET (ULORIC) PO SCH (08:29)
[2017-07-19] MEDS: OMEPRAZOLE 20 MG CAP PO SCH (08:30)
[2017-07-19] MEDS: METOPROLOL TART 50 MG TAB PO SCH (08:30)
[2017-07-19] MEDS ORDERED: TORSEMIDE 20 MG TAB PO SCH ×2 (09:00→17:00)
[2017-07-19] MEDS ORDERED: LOPR1TAB6 PO (09:16)
[2017-07-19] MEDS ORDERED: ISOS30TA4 PO (09:16)
[2017-07-19] MEDS ORDERED: DEMA20TA6 PO (09:16)
[2017-07-19 09:26] VITALS: BP 146/65
[2017-07-19 11:50] VITALS: BP_SYST 114; BP_SYST 125; BP_SYST 130; BP_DIAS 52; BP_DIAS 58
[2017-07-19 12:22] VITALS: BP 114/52
[2017-07-19] MEDS ORDERED: ISOS60TA2 PO (14:25)
[2017-07-19] MEDS ORDERED: TORS20TA2 PO (14:25)
[2017-07-19] MEDS ORDERED: METO50TA7 PO (14:25)
--- NOTE | 2017-07-19 15:18 | IPN ---
DATE: 07/19/2017 Mr. Robles is seen this morning on his bedside. He just finished eating breakfast and is sitting at the edge of bed. He is feeling well and wants to go home. He was admitted with symptomatic anemia and underwent upper and lower endoscopies. Multiple polyps were removed from his colon and no evidence of acute bleeding was noted. The patient has been tolerating oral diet very well. He has no other complaints at this time. He denies any dyspnea or chest pain. He does have chronic leg edema, and I resumed his diuretics yesterday. PHYSICAL EXAMINATION Temperature 98.6 degrees Fahrenheit, heart rate 54 per minute and respiratory rate 16 per minute. Blood pressure 146/65 mmHg and oxygen saturation 95% on room air. Head is atraumatic. Neck is obese and jugular venous distention (JVD) is difficult to be assessed. Pupils are equal and reactive to light and sclera is anicteric. Ears, nose and throat are unremarkable. Heart sounds are regular and lungs sound clear to auscultation. Abdomen is soft and nontender. Bowel sounds are normal. Extremities have no cyanosis or clubbing. Neurologically, he is awake, alert and oriented times three. Lower extremities have at least 2+ edema. Today's labs show WBC count 8.3, hemoglobin 8.0 and hematocrit 24.7. Platelets are 100,000. Sodium 136 and potassium 4.2. BUN 56 and creatinine 2.54. Glucose 175 and calcium 7.7. Magnesium level is 1.5. PROBLEMS: 1. Symptomatic anemia. The patient received a total of 5 units of packed RBCs and his anemia improved. He has further decline in his hemoglobin level today, which is probably due to hemodilution. No emergent need for transfusion at this point. He can be followed up as an outpatient. 2. Acute renal failure superimposed on chronic kidney disease. His kidney function is more or less stable with slight fluctuations. He has good urine output and can be followed up as an outpatient. 3. Congestive heart failure. The patient has known history of diastolic congestive heart failure. His diuretics were on hold when he had GI bleed and acute kidney injury. He also went through bowel prep. His volume status seems to decompensated. I am increasing his torsemide dose to 40 mg twice a day. We will follow up in the office in 1 week. 4. Hypomagnesemia, most likely related to bowel prep and is likely to improve. He is already receiving magnesium sulfate 1 gram intravenously. 5. Diabetes. His diabetes seems to be reasonably well-controlled. The patient will continue with his home regimen after discharge. 6. History of gout. The patient is currently on Uloric 40 mg daily, which he should continue. DISPOSITION: From a renal standpoint, the patient can be discharged to home. He will followup in my office in 1 week.
[2017-07-20] MEDS ORDERED: FURO80TA2 PO (11:53)
== END 2017-07-19 15:00 | disposition home health service (06) | DRG 812 ==
LOC: M ED 13:49 → M ED INP 20:46 → M PCU 07-17 02:20
PROVIDERS: ADMIT Hospitalist; ATTEND Internal Medicine
PROC: 30233N1 Transfusion of Nonautologous Red Blood Cells into Peripheral Vein, Percutaneous Approach (ICD-10-PCS; 2017-07-16)
PROC: 0DBN8ZZ Excision of Sigmoid Colon, Via Natural or Artificial Opening Endoscopic (ICD-10-PCS; 2017-07-17)
PROC: 0DBM8ZZ Excision of Descending Colon, Via Natural or Artificial Opening Endoscopic (ICD-10-PCS; 2017-07-17)
PROC: 0DBK8ZZ Excision of Ascending Colon, Via Natural or Artificial Opening Endoscopic (ICD-10-PCS; 2017-07-17)
PROC: 0DBH8ZZ Excision of Cecum, Via Natural or Artificial Opening Endoscopic (ICD-10-PCS; 2017-07-17)
PROC: 0D5L8ZZ Destruction of Transverse Colon, Via Natural or Artificial Opening Endoscopic (ICD-10-PCS; 2017-07-17)
PROC: 0DJ08ZZ Inspection of Upper Intestinal Tract, Via Natural or Artificial Opening Endoscopic (ICD-10-PCS; principal; 2017-07-17 14:50)
DX: D64.9 Anemia, unspecified (principal); Z68.41 Body mass index [BMI] 40.0-44.9, adult; I13.0 Hypertensive heart and chronic kidney disease with heart failure and stage 1 through stage 4 chronic kidney disease, or unspecified chronic kidney disease; I16.0 Hypertensive urgency; K31.89 Other diseases of stomach and duodenum; I50.9 Heart failure, unspecified; D12.2 Benign neoplasm of ascending colon; M10.9 Gout, unspecified; D12.0 Benign neoplasm of cecum; D12.4 Benign neoplasm of descending colon; K57.30 Diverticulosis of large intestine without perforation or abscess without bleeding; D12.5 Benign neoplasm of sigmoid colon; D12.3 Benign neoplasm of transverse colon; K64.8 Other hemorrhoids; E66.01 Morbid (severe) obesity due to excess calories; E78.5 Hyperlipidemia, unspecified; G47.33 Obstructive sleep apnea (adult) (pediatric); N18.3 Chronic kidney disease, stage 3 (moderate); E11.9 Type 2 diabetes mellitus without complications; Z79.4 Long term (current) use of insulin; Z79.899 Other long term (current) drug therapy; Z98.41 Cataract extraction status, right eye; Z98.42 Cataract extraction status, left eye; Z99.89 Dependence on other enabling machines and devices

== ENCOUNTER 2017-07-22 04:46 | Inpatient (IN) | payer OTHER ==
[2017-07-22] VITALS (7 sets, daily range): BP systolic 146–197; BP diastolic 64–96
[~2017-07-22] VITALS: Ht 188 cm; Wt 145.6 kg
[~2017-07-22 04:46] MED LIST changes: +FEBU40TA PO; +ISOS60TA2 PO; +LOPR1TAB6 PO; +METO25TA PO; +METO50TA7 PO; +SIMV20TA2 PO; +TORS20TA2 PO
[2017-07-22] MEDS ORDERED: NS 500 ML IV ONE (08:30)
[2017-07-22] MEDS: FEBUXOSTAT 40 MG TABLET (ULORIC) PO SCH (09:00)
--- NOTE | 2017-07-22 09:21 | REP ---
CT Head without contrast HISTORY: Altered mental status COMPARISON: None Areas of decreased attenuation are present in the periventricular white matter. This represents small-vessel ischemic disease. There is no intraparenchymal hemorrhage, acute infarct, mass or midline shift. The ventricular system and cortical sulci as well as subarachnoid space in the posterior fossa are dilated consistent with moderate volume loss. There is no extra cerebral collection. There is no fracture. The visualized sinuses are clear. IMPRESSION: 1. Small vessel ischemic disease per 2. Moderate volume loss. Signed by Akbar Ritter MD 07/22/2017 09:12 A
--- NOTE | 2017-07-22 09:34 | REP ---
PORTABLE CHEST, ONE VIEW: HISTORY: Altered mental status. COMPARISON: 07/16/2017 The lungs are clear. The cardiac silhouette is enlarged. The pulmonary vasculature is normal in appearance. IMPRESSION: Cardiomegaly. Signed by Akbar Ritter MD 07/22/2017 09:53 A
--- NOTE | 2017-07-22 09:40 | REP ---
BILATERAL LOWER EXTREMITY DUPLEX VEINS: HISTORY: Pain right lower extremity. RIGHT LOWER EXTREMITY: There are no filling defects in the deep venous system. The deep venous system is patent. IMPRESSION: There is no deep venous thrombosis. LEFT LOWER EXTREMITY: There are no filling defects in the deep venous system. The deep venous system is patent. IMPRESSION: There is no deep venous thrombosis. Signed by Akbar Ritter MD 07/22/2017 09:53 A
[2017-07-22 10:35] LABS: BASO % 0.3 % (0.0-1.0); EOS % 0.3 % (0.0-3.0); IMMATURE GRANULOCYTE % 0.3 % (0-0); LYMPH # 0.6 10^3/uL (1.5-4.5); LYMPH % 9.9 % (24.0-44.0); MEAN CORPUSCULAR HEMOGLOBIN 29.9 pg (27.0-33.0); MEAN CORPUSCULAR HGB CONC 32.6 g/dl (32.0-36.5); MEAN CORPUSCULAR VOLUME 91.8 fl (80.0-96.0); MONO # 0.5 10^3/uL (0.0-0.8); MONO % 8.7 % (0.0-5.0); NEUTROPHILS # 4.8 10^3/uL (1.8-7.7); NEUTROPHILS % 80.5 % (36.0-66.0); RED CELL DISTRIBUTION WIDTH 16.4 % (11.5-14.5)
[2017-07-22 10:37] LABS: ADD MANUAL DIFFER NO; DIFF SLIDE NUMBER 104; PLATELET COUNT, AUTOMATED 88 10^3/uL (150-450)
[2017-07-22 10:38] LABS: IMMATURE PLATELET FRACTION % 3.1 % (0.0-10.9)
[2017-07-22 10:56] LABS: ALBUMIN 2.4 GM/DL (3.2-5.2); ALBUMIN/GLOBULIN RATIO 0.67 (1.00-1.93); ALKALINE PHOSPHATASE 80 U/L (45-117); ALT/SGPT 31 U/L (12-78); ANION GAP 8 MEQ/L (8-16); AST/SGOT 36 U/L (7-37); BILIRUBIN,DIRECT 0.4 MG/DL (0.0-0.2); BILIRUBIN,TOTAL 0.9 MG/DL (0.2-1.0); BLOOD UREA NITROGEN 74 MG/DL (7-18); CALCIUM LEVEL 7.9 MG/DL (8.8-10.2); CARBON DIOXIDE LEVEL 29 MEQ/L (21-32); CHLORIDE LEVEL 105 MEQ/L (98-107); CREATININE FOR GFR 2.62 MG/DL (0.70-1.30); GLOMERULAR FILTRATION RATE 25.3 (>42); GLUCOSE, FASTING 224 MG/DL (83-110); POTASSIUM SERUM 4.3 MEQ/L (3.5-5.1); SODIUM LEVEL 142 MEQ/L (136-145)
[2017-07-22] MEDS ORDERED: traMADol 50 MG TAB PO PRN (12:45)
[2017-07-22] MEDS ORDERED: ONDANSETRON 4MG/2ML VIAL (J2405) IV PRN (12:45)
[2017-07-22] MEDS ORDERED: ACETAMINOPHEN TAB 650MG DOSE (2X325MG) PO ONE (12:45)
[2017-07-22] MEDS ORDERED: GLUCOSE 4 GM CHEW TABLET PO PRN (12:45)
[2017-07-22] MEDS ORDERED: DEXTROSE 50% 50 ML SYRINGE IV PRN (12:45)
[2017-07-22] MEDS ORDERED: GLUCAGON FOR INJ 1 MG VIAL (J1610) SC PRN (12:45)
[2017-07-22] MEDS ORDERED: GASTROGRAFIN SOLUTION 30ML (Q9963) PO ONE (13:40)
--- NOTE | 2017-07-22 13:43 | HPEPDOC ---
General Date of Admission 07/22/17 Attending Physician: SUSAN RUBIO MD Chief Complaint The patient is a 76-year-old male admitted with a reason for visit of [facility]. Source: Patient, Family History of Present Illness 76-year-old male with past medical history of hypertension, dyslipidemia, diabetes mellitus, ASIF on CPAP, gout, diastolic congestive heart failure, CK a stage III, and Liver Cirrhosis/Portal HTN identified on CT Abd 05/2017 presents to the ER with a chief complaint of generalized malaise/weakness. The patient was recently admitted from 07/16-07/19 for GI bleed. At that time, an EGD and colonoscopy was performed and did not reveal any acute source of bleeding. The patient was transfused 5 units of packed red blood cells and subsequently discharged home. However, over the last few days since discharge, the patient has developed generalized weakness and malaise. The patient states that he was also confused yesterday. He denies noting any fevers, chills, chest pain, palpitations, abdominal pain, black/tarry colored stools, or any nausea/vomiting /diarrhea. In the ER, the patient's hemoglobin level was noted to be 7.3. In addition, the patient was also noted to have elevated lactate level of 2.4. The patient will be admitted to the hospitalist service for further evaluation and management. Home Medications Scheduled Cholecalciferol (Vitamin D-1000) 1,000 Unit Tab, 1,000 UNIT PO QHS, (Reported) Febuxostat (Uloric) 40 Mg Tab, 40 MG PO DAILY, (Reported) Ferrous Sulfate (Ferrous Sulfate) 325 Mg Tab, 325 MG PO DAILY, (Reported) Gabapentin (Gabapentin) 100 Mg Cap, 200 MG PO QHS, (Reported) Insulin Aspart (Novolog) 100 U/Ml Inj, 1 DOSE SC AC, (Reported) PER SLIDING SCALE Insulin Glargine (Lantus) 1 Units/0.01 Ml Susp, 70 UNITS SC QHS, (Reported) Isosorbide Mononitrate (Isosorbide Mononitrate ER) 60 Mg Tab, 60 MG PO DAILY Metolazone (Metolazone) 2.5 Mg Tab, 2.5 MG PO Q2D, (Reported) Metoprolol Tartrate (Metoprolol Tartrate) 50 Mg Tab, 50 MG PO BID Pantoprazole Sodium (Pantoprazole Sodium) 40 Mg Tab, 40 MG PO DAILY, (Reported) Simvastatin (Simvastatin) 20 Mg Tab, 10 MG PO QHS, (Reported) Torsemide (Torsemide) 20 Mg Tab, 40 MG PO BID Trospium Chloride (Trospium Chloride) 20 Mg Tab, 20 MG PO QHS, (Reported) Scheduled PRN Acetaminophen (Acetaminophen) 325 Mg Tab, 650 MG PO Q6H PRN for PAIN, (Reported) Tramadol HCl (Tramadol HCl) 50 Mg Tab, 50 MG PO Q4H PRN for PAIN, (Reported) FOR SEVERE PAIN ONLY Allergies Coded Allergies: No Known Allergies (Unverified , 12/28/15) Past Medical History Medical History As noted in HPI. Social History * Smoker: Denies Alcohol: other (previously drink 3-4 beers daily, and a few shots of whiskey for 5 years. Has not drank alcohol at that level for 50 years. Currently drinks an alcoholic beverage only occasionally.) Drugs: denies Lives at home with his . Functionally independent at baseline Review of Symptoms Other systems 10 point review of systems negative unless otherwise specified in HPI. Physical Examination General Exam: Positive: Alert, Cooperative, No Acute Distress, Other (morbidly obese) ENT Exam: Positive: Atraumatic, Mucous membr. moist/pink Neck Exam: Negative: JVD Chest Exam: Positive: Clear to auscultation, Normal air movement Heart Exam: Positive: Rate Normal, Normal S1, Normal S2 Telemetry: Positive: Sinus Abdomen Exam: Positive: Soft, Negative: Tenderness Extremity Exam: Positive: Swelling (1+ pitting edema), Other (Jean bandage noted to be wrapped around right lower extremity, near the cameron.), Negative: Tenderness Psych Exam: Positive: Oriented x 3 Vital Signs Vital Signs Date Time Temp Pulse Resp B/P (MAP) Pulse Ox O2 Delivery O2 Flow Rate FiO2 07/22/17 12:24 96 164/70 (101) 98 07/22/17 11:24 16 07/22/17 05:01 96.6 Room Air Laboratory Data Labs 24H Laboratory Tests 2 07/22/17 08:46: Urine Appearance CLEAR, Urine Color YELLOW, Urine pH 5.0, Urine Specific [place] 1.011, Urine Protein NEGATIVE, Urine Glucose (UA) NEGATIVE, Urine Ketones NEGATIVE, Urine Urobilinogen 0.2, Urine Bilirubin NEGATIVE, Urine Leukocyte Esterase NEGATIVE, Urine Blood 1+H, Urine Nitrite NEGATIVE, Urine WBC (Auto) 1, Urine RBC (Auto) 2, Urine Hyaline Casts (Auto) 0, Urine Bacteria (Auto ) NEGATIVE, Urine Squamous Epithelial Cells 0, Urine Sperm (Auto) 07/22/17 10:24: Immature Granulocyte % (Auto) 0.3H, White Blood Count 6.0, Red Blood Count 2.44L , Hemoglobin 7.3L, Hematocrit 22.4L, Mean Corpuscular Volume 91.8, Mean Corpuscular Hemoglobin 29.9, Mean Corpuscular Hemoglobin Concent 32.6, Red Cell Distribution Width 16.4H, Platelet Count 88L, Neutrophils (%) (Auto) 80.5H, Lymphocytes (%) (Auto) 9.9L, Monocytes (%) (Auto) 8.7H, Eosinophils (%) (Auto) 0.3, Basophils (%) (Auto) 0.3, Neutrophils # (Auto) 4.8, Lymphocytes # (Auto) 0.6L, Monocytes # (Auto) 0.5, Eosinophils # (Auto) 0.0, Basophils # (Auto) 0.0, Immature Granulocyte # (Auto) 0.0, Nucleated Red Blood Cells % (auto) 0.0, Immature Platelet Fraction 3.1, Anion Gap 8, Glomerular Filtration Rate 25.3L, Lactic Acid Level 2.4*H, Calcium Level 7.9L, Aspartate Amino Transf (AST/SGOT) 36, Alanine Aminotransferase (ALT/SGPT) 31, Alkaline Phosphatase 80, Total Bilirubin 0.9, Direct Bilirubin 0.4H, Total Creatine Kinase 255, Creatine Kinase MB 5.0H, Creatine Kinase MB Relative Index 1.96, Troponin I 0.14H, Total Protein 6.0L, Albumin 2.4L, Albumin/Globulin Ratio 0.67L CBC/BMP Laboratory Tests 07/22/17 10:24 Red Blood Count 2.44 L, Mean Corpuscular Volume 91.8, Mean Corpuscular Hemoglobin 29.9, Mean Corpuscular Hemoglobin Concent 32.6, Red Cell Distribution Width 16.4 H, Neutrophils (%) (Auto) 80.5 H, Lymphocytes (%) (Auto ) 9.9 L, Monocytes (%) (Auto) 8.7 H, Eosinophils (%) (Auto) 0.3, Basophils (%) ( Auto) 0.3, Neutrophils # (Auto) 4.8, Lymphocytes # (Auto) 0.6 L, Monocytes # ( Auto) 0.5, Eosinophils # (Auto) 0.0, Basophils # (Auto) 0.0 Microbiology Microbiology 07/22/17 Blood Culture, Received Pending 07/22/17 Blood Culture, Received Pending 07/22/17 Urine Culture, Received Pending 07/22/17 Wound Culture, Received Pending Plan / VTE VTE Prophylaxis Ordered?: Yes Plan Plan Generalized Weakness/Malaise 2/2 Symptomatic Anemia Hemoglobin noted to be 7.3 in the ER The patient was consented to be transfused 2 units of packed red blood cells EGD and colonoscopy from previous admission with no acute sources of bleeding Patient denies any complaints of dark/tarry colored stools We will obtain a stool occult study We will serially monitor the patient's H&H levels CT scan of the abdomen/pelvis ordered Lactic Acidosis 2/2 Above We will repeat a lactic acid level Liver Cirrhosis, Portal HTN noted on CT Abd/Pel in 05/2017 LFTs within normal limits here Patient does note a remote history of alcohol abuse 50 years ago, denies any knowledge of any underlying liver disease EGD did not reveal any varices We will check an ammonia level Hepatitis panel ordered We will monitor LFTs Elevated Troponin Troponin noted to be 0.14--patient without any acute complaints of chest pain, palpitations, shortness of breath EKG with no acute changes Of note, the patient does have a history of elevated troponin levels which may be attributable to underlying CKD We will serially trend the patient's troponin markers Diabetes mellitus Long-acting insulin dose reduced due to poor appetite--consider up-titration as tolerated Insulin sliding scale ordered for additional coverage HX of Grade 2 Diastolic CHF Patient does not appear to be volume overloaded at this time We will continue diuretics as ordered Chronic kidney disease stage III Serum creat appears to be at baseline Hypertension Continue regimen as ordered GERD Continue PPI Dyslipidemia Continue statin Gout Continue Uloric Morbid obesity Complicating medical care ASIF on CPAP Cont use of home CPAP device DVT prophylaxis SCDs/TEDs ordered (Not on AC 2/2 Anemia, hx of GI Bleed) Disposition--pending clinical improvement. Physical therapy ordered for functional optimization This patient will be admitted under the service of Dr. Rubio, who will begin to follow the patient on 07/23/17 @ 7am. BLANQUITA LUNSFORD MD Jul 22, 2017 13:43
[2017-07-22] MEDS ORDERED: GASTROGRAFIN SOLUTION 30ML PO ONE (14:10)
[2017-07-22 14:12] LABS: INR 1.32
[2017-07-22] MEDS: metOLazone 2.5 MG TAB PO SCH (17:19)
[2017-07-22] MEDS: ISOSORBIDE MON. (IMDUR) 60 MG XR TAB PO SCH (17:19)
[2017-07-22] MEDS: TORSEMIDE 20 MG TAB PO SCH (17:19)
[2017-07-22] MEDS: LACTULOSE 20 GM/30 ML SYRUP UD PO SCH (17:19)
--- NOTE | 2017-07-22 18:06 | ECGEPIP ---
Stationary ECG Study [facility] - ED Test Date: 2017-07-22 Pat Name: MOLINA CRUZ Department: Room: - Gender: M Office Professionals: ZOILA : 1940 Requested By: MARQUISE Vazquez Order Number: [id number] Reading MD: Sourav Salvador Measurements Intervals [place] Rate: 100 P: 50 MN: 159 QRS: 47 QRSD: 137 T: 10 QT: 391 QTc: 506 Interpretive Statements SINUS TACHYCARDIA INDETERMINATE AXIS RIGHT BUNDLE BRANCH BLOCK SIMILAR TO 07/16/17 Electronically Signed On 07-22-2017 18:06:30 EST by Sourav Salvador
[2017-07-22 18:42] LABS: REASON FOR REVIEW COMPREHENSIVE REVIEW
[2017-07-22 18:43] LABS: RETIC HEMOGLOBIN EQUIVALENT 33.7 pg (24-36); RETICULOCYTE % 5.2 % (0.5-1.5)
[2017-07-22] MEDS: HumaLOG INSULIN (NovoLOG) PER UNIT SC SCH ×2 (18:52→20:51)
[2017-07-22] MEDS: GABAPENTIN 100 MG CAP PO SCH (20:51)
[2017-07-22] MEDS: LEVEMIR (INSULIN DETEMIR) 1 UNITS/0.01ML SC SCH (20:51)
[2017-07-22] MEDS: SIMVASTATIN 10 MG TAB PO SCH (20:52)
[2017-07-22] MEDS: METOPROLOL TART 50 MG TAB PO SCH (20:52)
[2017-07-22] MEDS: PANTOPRAZOLE 40MG TAB (PROTONIX) PO SCH (20:52)
[2017-07-22] MEDS: VITAMIN D 1,000 INTERNATIONAL UNITS TABLET PO SCH (20:52)
[2017-07-22] MEDS: TROSPIUM 20 MG TAB PO SCH (21:00)
[2017-07-22] MEDS ORDERED: CEFTRIAXONE SOD 1 GM in APPROPRIATE DILUENT 1 EA IV SCH (22:00)
[2017-07-23] MEDS: ACETAMINOPHEN TAB 650MG DOSE (2X325MG) PO PRN (02:27)
[2017-07-23] MEDS: LACTULOSE 20 GM/30 ML SYRUP UD PO SCH ×2 (03:49→09:21)
[2017-07-23 04:00] VITALS: BP 130/62
--- NOTE | 2017-07-23 06:22 | REP ---
CT ABDOMEN AND PELVIS WITHOUT CONTRAST: HISTORY: Anemia. COMPARISON: 06/18/2017. The liver is irregular in contour. The kidneys are atrophic greater on the left than on the right. A 5 mm cyst is present in the inferior pole of the left kidney. The gallbladder, pancreas, spleen and adrenal glands are normal in appearance. There is no mass or adenopathy. A small amount of ascites is present. The visualized lungs are clear. The prostate gland and urinary bladder are normal in appearance. Degenerative change is present in the spine. IMPRESSION: 1. The liver is irregular in contour likely secondary to cirrhosis. 2. Bilateral renal atrophy. 3. Small 5 mm left renal cyst. 4. There is a small amount of ascites. Signed by Akbar Ritter MD 07/23/2017 08:24 A
[2017-07-23 07:31] LABS: MEAN CORPUSCULAR HEMOGLOBIN 29.5 pg (27.0-33.0); MEAN CORPUSCULAR HGB CONC 33.1 g/dl (32.0-36.5); MEAN CORPUSCULAR VOLUME 89.2 fl (80.0-96.0); RED CELL DISTRIBUTION WIDTH 16.7 % (11.5-14.5); WHITE BLOOD COUNT 6.9 10^3/uL (4.0-10.0)
[2017-07-23 07:33] LABS: BILIRUBIN,DIRECT 0.4 MG/DL (0.0-0.2); BILIRUBIN,TOTAL 0.9 MG/DL (0.2-1.0)
[2017-07-23 07:38] LABS: PLATELET COUNT, AUTOMATED 99 10^3/uL (150-450)
[2017-07-23 07:50] LABS: ALBUMIN 2.4 GM/DL (3.2-5.2); ALBUMIN/GLOBULIN RATIO 0.65 (1.00-1.93); BILIRUBIN,TOTAL 1.7 MG/DL (0.2-1.0); CALCIUM LEVEL 8.1 MG/DL (8.8-10.2); CREATININE FOR GFR 2.63 MG/DL (0.70-1.30); GLOMERULAR FILTRATION RATE 25.2 (>42); MAGNESIUM LEVEL 1.9 MG/DL (1.8-2.4); POTASSIUM SERUM 4.1 MEQ/L (3.5-5.1); TOTAL PROTEIN 6.1 GM/DL (6.4-8.2)
[2017-07-23 08:00] VITALS: BP 148/52
[2017-07-23] MEDS ORDERED: FERROUS SULFATE 325MG TAB PO SCH (09:00)
[2017-07-23] MEDS: TORSEMIDE 20 MG TAB PO SCH ×2 (09:22→18:03)
[2017-07-23] MEDS: ISOSORBIDE MON. (IMDUR) 60 MG XR TAB PO SCH (09:22)
[2017-07-23] MEDS: METOPROLOL TART 50 MG TAB PO SCH ×2 (09:22→20:37)
[2017-07-23] MEDS: FEBUXOSTAT 40 MG TABLET (ULORIC) PO SCH (09:22)
[2017-07-23] MEDS: PANTOPRAZOLE 40MG TAB (PROTONIX) PO SCH ×2 (09:22→20:36)
[2017-07-23] MEDS: HumaLOG INSULIN (NovoLOG) PER UNIT SC SCH ×4 (09:23→20:38)
--- NOTE | 2017-07-23 09:30 | IPNPDOC ---
Date Seen The patient was seen on 07/23/17. Progress Note SUBJECTIVE: Patient is a 76-year-old male with symptomatic anemia. Patient is evaluated at bedside this morning. He denies recent travel to [facility], [facility], or international. Does recall traveling to [place] and [place] several years ago. Stationed in [place] in the 60's. Denies exposure to TB or malaria. Denies lymphadenopathy. Denies skin rashes or lesions. Only lesions he says he has is due to diabetes (chronic venous stasis dermatitis and/or cellulitis). No family history of bleeding dyscrasias, leukemia, or lymphoma. No personal history of the aforementioned. Denies epistaxis, hematemesis, hemoptysis, hematochezia, hematuria. Has easy bruising into the skin which he says is iatrogenic due to peripheral access requirements and insulin injections. Admits to dark black stools that he says is green- colored when it coats the toilet bowl. Admits to continued lower extremity weakness and chronic skin changes related to diabetes. OBJECTIVE PHYSICAL EXAMINATION: VITAL SIGNS: Please see below. GENERAL: Obese male, appears stated age, well nourished, well developed, no acute distress HEENT: Atraumatic, normocephalic, PERRL, EOMI, oral mucosa appears pink, but lips are somewhat dry, nasal septum appears midline, nares are patent CARDIOVASCULAR: Regular rate and rhythm, normal S1 and S2, no murmur, rub, click RESPIRATORY: Clear to auscultation bilaterally, adequate inspiratory and expiratory airway excursion, no wheeze, rhonchi, crackles ABDOMINAL: Obese, soft, non-tender, non-distended, bowel sounds appreciated, ecchymoses are appreciated on the right lower quadrant EXTREMITIES: Multiple ecchymoses appreciated on the upper extremities bilaterally, chronic venous stasis dermatitis bilaterally on lower extremities, +3 pitting edema bilaterally, radial pulses appreciated and equal bilaterally, + 2 NEUROLOGICAL: CN II-XII grossly intact PSYCHOLOGICAL: Alert and conversant LABORATORY DATA: Please see below. MICROBIOLOGY: Please see below. IMAGING: Duplex venous ultrasound, bilaterally IMPRESSION: There is no deep venous thrombosis. CT head without contrast IMPRESSION: 1. Small vessel ischemic disease per 2. Moderate volume loss. Portable chest x-ray IMPRESSION: Cardiomegaly. CT abdomen and pelvis with PO contrast only IMPRESSION: 1. The liver is irregular in contour likely secondary to cirrhosis. 2. Bilateral renal atrophy. 3. Small 5 mm left renal cyst. 4. There is a small amount of ascites. DVT prophylaxis ordered?: TEDs, sequentials, and knee high compression. ASSESSMENT AND PLAN: This is a 76-year-old male with symptomatic anemia. PROBLEMS: 1. Symptomatic anemia: Continues to experience lower extremity weakness. Receiving three units of PRBC. Hemoglobin has improved to 9.6. Possible source of bleeding from GI source as patient describes black, tarry stool. GI consult. Pending stool for occult blood. Peripheral smear pending. Obtaining haptoglobin, LDH, and indirect bilirubin. LDH and indirect bilirubin are elevated. Haptoglobin is pending. Obtaining EPO and direct Coomb's test. CT abdomen and pelvis does not reveal a source of bleeding. Continue with iron supplementation. 2. Lactic acidosis: Has resolved. 3. Liver cirrhosis: Ammonia level was elevated. Continue with Lactulose. LFTs are within optimal range. 4. Elevated troponin: Chronically elevated. No chest pain, shortness of breath , or other symptoms to indicated acute coronary syndrome. Appears to be improving. Currently 0.11. Likely secondary to CHF and CKD. 5. Diabetes mellitus: Continue with 30 units Levemir, SSI, fingersticks AC/HS, and hypoglycemic protocol. 6. History of grade 2 diastolic CHF: Continue with Demadex twice daily. Continues to be volume overloaded. Minimal negative balance. 7. Chronic kidney disease, stage III: Creatinine 2.63. 8. Hypertension: Continue with current home medications. 9. GERD: Continue with PPI. 10. Dyslipidemia: Continue with statin. 11. Gout: Continue with Uloric. Likely result of chronic kidney disease. 12. Morbid obesity: Likely complicating medical care. 13. ASIF on CPAP: Continue home CPAP. DISPOSITION: Transfer to medical-surgical unit. Hemoglobin improving after transfusion. Continue to monitor. GI consult. PT ordered. VS, I&O, 24H, Fishbone Vital Signs/I&O Vital Signs Date Time Temp Pulse Resp B/P (MAP) Pulse Ox O2 Delivery O2 Flow Rate FiO2 07/23/17 08:00 97.5 60 16 148/52 (84) 97 Room Air Laboratory Data 24H LABS Laboratory Tests 2 07/22/17 10:24: Immature Granulocyte % (Auto) 0.3H, White Blood Count 6.0, Red Blood Count 2.44L , Hemoglobin 7.3L, Hematocrit 22.4L, Mean Corpuscular Volume 91.8, Mean Corpuscular Hemoglobin 29.9, Mean Corpuscular Hemoglobin Concent 32.6, Red Cell Distribution Width 16.4H, Platelet Count 88L, Neutrophils (%) (Auto) 80.5H, Lymphocytes (%) (Auto) 9.9L, Monocytes (%) (Auto) 8.7H, Eosinophils (%) (Auto) 0.3, Basophils (%) (Auto) 0.3, Neutrophils # (Auto) 4.8, Lymphocytes # (Auto) 0.6L, Monocytes # (Auto) 0.5, Eosinophils # (Auto) 0.0, Basophils # (Auto) 0.0, Immature Granulocyte # (Auto) 0.0, Reticulocyte # (auto) 126.9H, Nucleated Red Blood Cells % (auto) 0.0, Differential Slide Review Report, Differential Pathologist's Review COMPREHENSIVE REVIEW, Immature Platelet Fraction 3.1, Peripheral Blood Smear Path Consult PERIPHERAL SMEAR, Percent Reticulocyte Count 5.2H, Reticulocyte Hemoglobin Equivalent 33.7, Prothrombin Time 16.6H, Prothromb Time International Ratio 1.32, Anion Gap 8, Glomerular Filtration Rate 25.3L, Lactic Acid Level 2.4*H, Calcium Level 7.9L, Total Bilirubin 0.9, Aspartate Amino Transf (AST/SGOT) 36, Alanine Aminotransferase (ALT/SGPT) 31, Alkaline Phosphatase 80, Direct Bilirubin 0.4H, Lactate Dehydrogenase 389H, Total Creatine Kinase 257, Creatine Kinase MB 5.3H, Creatine Kinase MB Relative Index 2.06, Troponin I 0.14H, Total Protein 6.0L, Albumin 2.4L, Albumin/ Globulin Ratio 0.67L 07/22/17 13:53: Total Creatine Kinase 241, Creatine Kinase MB 4.9H, Creatine Kinase MB Relative Index 2.03, Troponin I 0.14H, Ammonia 70H 07/22/17 16:46: Bedside Glucose (Misc Panel) 226H 07/22/17 20:45: Bedside Glucose (Misc Panel) 305H 07/22/17 21:23: Lactic Acid Followup at 4 Hours 4.7*H, Total Creatine Kinase 285, Creatine Kinase MB 5.4H, Creatine Kinase MB Relative Index 1.89, Troponin I 0.15H 07/23/17 07:10: Troponin I 0.11#H, Nucleated Red Blood Cells % (auto) 0.0, Anion Gap 7L, Glomerular Filtration Rate 25.2L, Blood Urea Nitrogen 65H, Creatinine 2.63H, Sodium Level 139, Potassium Level 4.1, Chloride Level 102, Carbon Dioxide Level 30, Calcium Level 8.1L, Aspartate Amino Transf (AST/SGOT) 42H, Alanine Aminotransferase (ALT/SGPT) 33, Alkaline Phosphatase 80, Total Bilirubin 1.7#H, Total Protein 6.1L, Albumin 2.4L, Magnesium Level 1.9, Ammonia 76H, Albumin/ Globulin Ratio 0.65L 07/23/17 07:16: Lactic Acid Level 1.7 CBC/BMP Laboratory Tests 07/22/17 10:24 Red Blood Count 2.44 L, Mean Corpuscular Volume 91.8, Mean Corpuscular Hemoglobin 29.9, Mean Corpuscular Hemoglobin Concent 32.6, Red Cell Distribution Width 16.4 H, Neutrophils (%) (Auto) 80.5 H, Lymphocytes (%) (Auto ) 9.9 L, Monocytes (%) (Auto) 8.7 H, Eosinophils (%) (Auto) 0.3, Basophils (%) ( Auto) 0.3, Neutrophils # (Auto) 4.8, Lymphocytes # (Auto) 0.6 L, Monocytes # ( Auto) 0.5, Eosinophils # (Auto) 0.0, Basophils # (Auto) 0.0 07/23/17 07:10 Red Blood Count 3.25 L, Mean Corpuscular Volume 89.2, Mean Corpuscular Hemoglobin 29.5, Mean Corpuscular Hemoglobin Concent 33.1, Red Cell Distribution Width 16.7 H, Calcium Level 8.1 L, Aspartate Amino Transf (AST/SGOT ) 42 H, Alanine Aminotransferase (ALT/SGPT) 33, Alkaline Phosphatase 80, Total Bilirubin 1.7 #H, Total Protein 6.1 L, Albumin 2.4 L Microbiology Microbiology 07/22/17 Blood Culture, Received Pending 07/22/17 Blood Culture, Received Pending 07/22/17 Stool Occult Blood (OLE), Ordered Pending 07/22/17 Urine Culture, Received Pending 07/22/17 Wound Culture, Received Pending OOSTHUIZEN,EBONY DO Jul 23, 2017 09:30
[2017-07-23 09:41] LABS: MYOGLOBIN > 500 NG/ML (16-116)
[2017-07-23 16:00] VITALS: BP 154/68
[2017-07-23 20:10] VITALS: BP 154/64
[2017-07-23] MEDS: TROSPIUM 20 MG TAB PO SCH (20:36)
[2017-07-23] MEDS: GABAPENTIN 100 MG CAP PO SCH (20:36)
[2017-07-23] MEDS: VITAMIN D 1,000 INTERNATIONAL UNITS TABLET PO SCH (20:36)
[2017-07-23] MEDS: SIMVASTATIN 10 MG TAB PO SCH (20:36)
[2017-07-23] MEDS: LEVEMIR (INSULIN DETEMIR) 1 UNITS/0.01ML SC SCH (20:38)
[2017-07-24 04:00] VITALS: BP 154/65
[2017-07-24] MEDS ORDERED: SLF 3 ML SYR IV PRN (05:15)
[2017-07-24 05:45] LABS: MEAN CORPUSCULAR HEMOGLOBIN 29.3 pg (27.0-33.0); MEAN CORPUSCULAR HGB CONC 32.8 g/dl (32.0-36.5); MEAN CORPUSCULAR VOLUME 89.3 fl (80.0-96.0); PLATELET COUNT, AUTOMATED 109 10^3/uL (150-450); RED CELL DISTRIBUTION WIDTH 16.6 % (11.5-14.5); WHITE BLOOD COUNT 7.1 10^3/uL (4.0-10.0)
[2017-07-24] MEDS: SLF 3 ML SYR IV SCH ×3 (06:00→21:01)
[2017-07-24 06:02] LABS: ALBUMIN 2.4 GM/DL (3.2-5.2); ALBUMIN/GLOBULIN RATIO 0.56 (1.00-1.93); BILIRUBIN,TOTAL 1.1 MG/DL (0.2-1.0); CALCIUM LEVEL 8.3 MG/DL (8.8-10.2); CREATININE FOR GFR 2.65 MG/DL (0.70-1.30); MAGNESIUM LEVEL 1.8 MG/DL (1.8-2.4); POTASSIUM SERUM 3.6 MEQ/L (3.5-5.1); TOTAL PROTEIN 6.7 GM/DL (6.4-8.2)
[2017-07-24] MEDS: HumaLOG INSULIN (NovoLOG) PER UNIT SC SCH ×4 (07:30→21:00)
[2017-07-24 08:00] VITALS: BP 157/70
[2017-07-24] MEDS: PROPRANOLOL 20 MG TAB PO SCH ×3 (09:00→20:59)
[2017-07-24] MEDS: TORSEMIDE 20 MG TAB PO SCH ×2 (09:00→16:55)
[2017-07-24] MEDS ORDERED: cefTRIAXone SOD 1 GM VIAL (J0696) IM SCH (11:45)
[2017-07-24] MEDS ORDERED: MIDAZOLAM INJ 2 MG/2 ML VIAL (J2250) As Ordered ONE (12:10)
[2017-07-24] MEDS ORDERED: fentaNYL 100 MCG/2 ML INJECTION (J3010) As Ordered ONE (12:11)
--- NOTE | 2017-07-24 12:42 | ROOR ---
Patient Name: Tomasa Robles Procedure Date: 07/24/2017 12:13 PM Date of : 1940 Age: 76 Room: [facility] Gender: Male Note Status: Finalized Procedure: Upper GI endoscopy Indications: Acute post hemorrhagic anemia, Iron deficiency anemia secondary to chronic blood loss Providers: Alhaji COREY MD Referring MD: MO [place], [facility], Admin. Requesting Provider: Medicines: Monitored Anesthesia Care, Fentanyl 50 micrograms IV, Midazolam 3 mg IV Complications: No immediate complications. Procedure: Pre-Anesthesia Assessment: - The heart rate, respiratory rate, oxygen saturations, blood pressure, adequacy of pulmonary ventilation, and response to care were monitored throughout the procedure. The Endoscope was introduced through the mouth, and advanced to the second part of duodenum. The upper GI endoscopy was accomplished without difficulty. The patient tolerated the procedure well. Findings: The examined esophagus was normal. Mild, moderate portal gastropathy (vs gastric antral vascular ectasia) was present in the gastric antrum. Coagulation for bleeding prevention using argon beam at 0.8 liters/minute and 30 almazan was successful. The exam of the stomach was otherwise normal. The examined duodenum was normal. Impression: - Normal esophagus. - Mild to moderate portal gastropathy in antrum and body of stomach (vs Gastric antral vascular ectasia). Treated with argon beam coagulation. - Normal examined duodenum. -( no lesions responsible for acute GI blood loss seen. Portal gastropathy may contribute to a chronic blood loss picture). - No specimens collected. Recommendation: - Use a proton pump inhibitor PO BID indefinitely. - Use sucralfate tablets 1 gram PO QID for 1 week. - Advance diet as tolerated. - Perform a small bowel follow through at the next available appointment. Alhaji Corey MD Alhaji COREY MD 07/24/2017 12:42:25 PM This report has been signed electronically. Number of Addenda: 0 Note Initiated On: 07/24/2017 12:13 PM Estimated Blood Loss: Estimated blood loss: none.
[2017-07-24 13:35] VITALS: BP 182/79
[2017-07-24] MEDS ORDERED: MIDAZOLAM INJ 2 MG/2 ML VIAL (J2250) IV ONE ×2 (13:47→13:52)
[2017-07-24] MEDS: PANTOPRAZOLE 40MG TAB (PROTONIX) PO SCH ×2 (13:49→21:01)
[2017-07-24] MEDS ORDERED: fentaNYL 100 MCG/2 ML INJECTION (J3010) IV ONE (13:50)
[2017-07-24] MEDS: metOLazone 2.5 MG TAB PO SCH (13:50)
[2017-07-24] MEDS: ISOSORBIDE MON. (IMDUR) 60 MG XR TAB PO SCH (13:56)
[2017-07-24] MEDS: FEBUXOSTAT 40 MG TABLET (ULORIC) PO SCH (13:56)
[2017-07-24] MEDS: CEFTRIAXONE SOD 1 GM in APPROPRIATE DILUENT 1 EA IV SCH (13:57)
[2017-07-24] MEDS: NS 1,000 ML IV SCH (14:52)
[2017-07-24 16:40] VITALS: BP 170/70
[2017-07-24] MEDS: SUCRALFATE 1 GM TAB PO SCH ×2 (16:55→21:01)
[2017-07-24 19:44] VITALS: BP 185/77
[2017-07-24] MEDS: LEVEMIR (INSULIN DETEMIR) 1 UNITS/0.01ML SC SCH (21:00)
[2017-07-24] MEDS: SIMVASTATIN 10 MG TAB PO SCH (21:01)
[2017-07-24] MEDS: TROSPIUM 20 MG TAB PO SCH (21:01)
[2017-07-24] MEDS: VITAMIN D 1,000 INTERNATIONAL UNITS TABLET PO SCH (21:01)
[2017-07-24] MEDS: GABAPENTIN 100 MG CAP PO SCH (21:01)
[2017-07-25] VITALS: BP 151/69
[2017-07-25] MEDS: SLF 3 ML SYR IV SCH ×3 (06:00→21:38)
[2017-07-25 06:04] LABS: MEAN CORPUSCULAR HEMOGLOBIN 29.6 pg (27.0-33.0); MEAN CORPUSCULAR HGB CONC 32.7 g/dl (32.0-36.5); MEAN CORPUSCULAR VOLUME 90.4 fl (80.0-96.0); RED CELL DISTRIBUTION WIDTH 16.1 % (11.5-14.5); WHITE BLOOD COUNT 5.8 10^3/uL (4.0-10.0)
[2017-07-25 06:10] LABS: IMMATURE PLATELET FRACTION % 4.1 % (0.0-10.9); PLATELET COUNT, AUTOMATED 92 10^3/uL (150-450)
[2017-07-25 06:22] LABS: ALBUMIN 2.2 GM/DL (3.2-5.2); ALBUMIN/GLOBULIN RATIO 0.63 (1.00-1.93); BILIRUBIN,TOTAL 0.9 MG/DL (0.2-1.0); CALCIUM LEVEL 7.9 MG/DL (8.8-10.2); CREATININE FOR GFR 2.72 MG/DL (0.70-1.30); GLOMERULAR FILTRATION RATE 24.2 (>42); MAGNESIUM LEVEL 1.7 MG/DL (1.8-2.4); POTASSIUM SERUM 3.4 MEQ/L (3.5-5.1); TOTAL PROTEIN 5.7 GM/DL (6.4-8.2)
[2017-07-25] MEDS ORDERED: MAG SULF 1GM/100ML (MAG RUN) 1 GM in APPROPRIATE DILUENT 1 EA IV ONE (07:15)
[2017-07-25] MEDS ORDERED: POTASSIUM CHLORIDE 10 MEQ SR TABLET PO ONE (07:15)
--- NOTE | 2017-07-25 07:28 | IPNPDOC ---
Date Seen The patient was seen on 07/24/17. Progress Note SUBJECTIVE: Patient is a 76-year-old male with symptomatic anemia. Patient is evaluated at bedside this morning. [facility], [facility], or international. Does recall traveling to [place] and [place] several years ago. Stationed in [place] in the 60's. Denies exposure to TB or malaria. Denies lymphadenopathy. Denies skin rashes or lesions. Only lesions he says he has is due to diabetes (chronic venous stasis dermatitis and/or cellulitis). No family history of bleeding dyscrasias, leukemia, or lymphoma. No personal history of the aforementioned. Denies epistaxis, hematemesis, hemoptysis, hematochezia, hematuria. Has easy bruising into the skin which he says is iatrogenic due to peripheral access requirements and insulin injections. Admits to dark black stools that he says is green- colored when it coats the toilet bowl. Admits to continued lower extremity weakness and chronic skin changes related to diabetes. OBJECTIVE PHYSICAL EXAMINATION: VITAL SIGNS: Please see below. GENERAL: Obese male, appears stated age, well nourished, well developed, no acute distress HEENT: Atraumatic, normocephalic, PERRL, EOMI, oral mucosa appears pink, but lips are somewhat dry, nasal septum appears midline, nares are patent CARDIOVASCULAR: Regular rate and rhythm, normal S1 and S2, no murmur, rub, click RESPIRATORY: Clear to auscultation bilaterally, adequate inspiratory and expiratory airway excursion, no wheeze, rhonchi, crackles ABDOMINAL: Obese, soft, non-tender, non-distended, bowel sounds appreciated, ecchymoses are appreciated on the right lower quadrant EXTREMITIES: Multiple ecchymoses appreciated on the upper extremities bilaterally, chronic venous stasis dermatitis bilaterally on lower extremities, +3 pitting edema bilaterally up to the thigh, diabetic wound noted on left lower extremity with granulation tissue present, radial pulses appreciated and equal bilaterally, +2 NEUROLOGICAL: CN II-XII grossly intact PSYCHOLOGICAL: Alert and conversant LABORATORY DATA: Please see below. MICROBIOLOGY: Please see below. IMAGING: Duplex venous ultrasound, bilaterally IMPRESSION: There is no deep venous thrombosis. CT head without contrast IMPRESSION: 1. Small vessel ischemic disease per 2. Moderate volume loss. Portable chest x-ray IMPRESSION: Cardiomegaly. CT abdomen and pelvis with PO contrast only IMPRESSION: 1. The liver is irregular in contour likely secondary to cirrhosis. 2. Bilateral renal atrophy. 3. Small 5 mm left renal cyst. 4. There is a small amount of ascites. DVT prophylaxis ordered?: TEDs, sequentials, and knee high compression. ASSESSMENT AND PLAN: This is a 76-year-old male with symptomatic anemia. PROBLEMS: 1. Acute blood loss anemia secondary to possible GI bleed: Continue the valued assistance of gastroenterology. Discontinued Lactulose and iron supplementation as those could be contributing to patient's presenting complaint. Status-post three units of PRBC. H/H is 9.8/29.9. No active bleeding. Stool for occult blood was positive. Patient scheduled for EGD with GI. Peripheral smear revealed "Multifactorial anemia with a component of anemia of chronic disease, exacerbated by GI bleed. Patient has received multiple packed RBC transfusions before this peripheral smear and therefore the smear is not truly reflective of his hematopiesis." Haptogoblin was within optimal range. Direct Coomb's was negative. Direct bilirubin was 1.1. 2. Diabetic leg wound: Culture positive for Enterobacter cloacae. Remains on Ceftriaxone. 3. Liver cirrhosis: Ammonia level has normalized. No metabolic encephalopathy appreciated. Discontinued Lactulose as it could be contributing factor to patient's clinical presentation. Hepatitis panel is negative. Changed beta- marc to Propranolol as patient has underlying portal hypertension. LFTs are within optimal range. 4. Elevated troponin: Chronically elevated. Likely secondary to CHF and CKD. 5. Diabetes mellitus: Continue with 30 units Levemir, SSI, fingersticks AC/HS, and hypoglycemic protocol. 6. History of grade 2 diastolic CHF: Continue with Demadex twice daily and Metolazone. Continues to be volume overloaded. Minimal negative balance. 7. Chronic kidney disease, stage III: Creatinine 2.65. 8. Hypertension: Continue with current home medications. Stopped Metoprolol and started Propranolol. 9. GERD: Continue with PPI. 10. Dyslipidemia: Continue with statin. 11. Gout: Continue with Uloric. Likely result of chronic kidney disease. 12. Morbid obesity: Likely complicating medical care. 13. ASIF on CPAP: Continue home CPAP. DISPOSITION: EGD today with GI. VS, I&O, 24H, Fishbone Vital Signs/I&O Vital Signs Date Time Temp Pulse Resp B/P (MAP) Pulse Ox O2 Delivery O2 Flow Rate FiO2 07/24/17 08:00 Room Air 07/24/17 08:00 98.0 61 18 157/70 (99) 94 I&O- Last 24 Hours up to 6 AM 07/25/17 06:00 Intake Total 0 ml Output Total 1400 ml Balance -1400 ml Laboratory Data 24H LABS Laboratory Tests 2 07/23/17 11:49: Bedside Glucose (Misc Panel) 199H 07/23/17 17:03: Bedside Glucose (Misc Panel) 240H 07/23/17 20:19: Bedside Glucose (Misc Panel) 262H 07/24/17 05:29: Nucleated Red Blood Cells % (auto) 0.0, Anion Gap 8, Glomerular Filtration Rate 25.0L, Blood Urea Nitrogen 66H, Creatinine 2.65H, Sodium Level 139, Potassium Level 3.6, Chloride Level 100, Carbon Dioxide Level 31, Calcium Level 8.3L, Aspartate Amino Transf (AST/SGOT) 43H, Alanine Aminotransferase (ALT/SGPT) 36, Alkaline Phosphatase 86, Total Bilirubin 1.1H, Total Protein 6.7, Albumin 2.4L, Magnesium Level 1.8, Ammonia 36H, Albumin/Globulin Ratio 0.56L CBC/BMP Laboratory Tests 07/23/17 15:21 07/23/17 21:14 07/24/17 05:29 Red Blood Count 3.35 L, Mean Corpuscular Volume 89.3, Mean Corpuscular Hemoglobin 29.3, Mean Corpuscular Hemoglobin Concent 32.8, Red Cell Distribution Width 16.6 H, Calcium Level 8.3 L, Aspartate Amino Transf (AST/SGOT ) 43 H, Alanine Aminotransferase (ALT/SGPT) 36, Alkaline Phosphatase 86, Total Bilirubin 1.1 H, Total Protein 6.7, Albumin 2.4 L Microbiology Microbiology 07/22/17 Blood Culture - Preliminary, Resulted No growth after 24 hours . All specim... 07/22/17 Blood Culture - Preliminary, Resulted No Growth after 48 hours. All Specime... 07/23/17 Stool Occult Blood (OLE) - Final, Complete 07/22/17 Stool Occult Blood (OLE), Ordered Pending 07/22/17 Urine Culture - Final, Complete Escherichia Coli 07/22/17 Wound Culture - Preliminary, Resulted Enterobacter Cloacae Complex Staphylococcus Sp Coag EBONY Art DO Jul 24, 2017 11:51
[2017-07-25] MEDS: SUCRALFATE 1 GM TAB PO SCH (07:30)
[2017-07-25 08:00] VITALS: BP 158/71
[2017-07-25] MEDS ORDERED: MIRALAX *UNIT DOSE* 17GM PACKET PO PRN (08:15)
[2017-07-25] MEDS ORDERED: VoLumen 0.1% SUSPENSION 450ML BOTTLE As Ordered ONE (08:19)
--- NOTE | 2017-07-25 08:48 | IPNPDOC ---
Date Seen The patient was seen on 07/25/17. Progress Note SUBJECTIVE: Patient is a 76-year-old male with symptomatic anemia. Patient is evaluated at bedside this morning. He is about to go down for his CT enterography requested by gastroenterology. Patient had an EGD yesterday with result reported below. Denies chest pain, shortness of breath, bleeding from any orifice, headache, or pain anywhere else. He is not convinced that phlebotomy lobo his labs this morning, even though they did. He is alert and oriented and is determined to have testing completed so he can go home. OBJECTIVE PHYSICAL EXAMINATION: VITAL SIGNS: Please see below. GENERAL: Obese male, appears stated age, well nourished, well developed, no acute distress HEENT: Atraumatic, normocephalic, PERRL, EOMI, oral mucosa appears pink, but lips are somewhat dry, nasal septum appears midline, nares are patent CARDIOVASCULAR: Regular rate and rhythm, normal S1 and S2, no murmur, rub, click RESPIRATORY: Clear to auscultation bilaterally, poor inspiratory and expiratory airway excursion likely due to body habitus, no wheeze, rhonchi, crackles ABDOMINAL: Obese, soft, non-tender, non-distended, bowel sounds appreciated, ecchymoses are appreciated on the right lower quadrant EXTREMITIES: Multiple ecchymoses appreciated on the upper extremities bilaterally, chronic venous stasis dermatitis bilaterally on lower extremities, +3 pitting edema bilaterally up to the thigh, diabetic wound noted on left lower extremity with granulation tissue present, radial pulses appreciated and equal bilaterally, +2 NEUROLOGICAL: CN II-XII grossly intact PSYCHOLOGICAL: Alert and conversant LABORATORY DATA: Please see below. MICROBIOLOGY: Please see below. IMAGING: Duplex venous ultrasound, bilaterally IMPRESSION: There is no deep venous thrombosis. CT head without contrast IMPRESSION: 1. Small vessel ischemic disease per 2. Moderate volume loss. Portable chest x-ray IMPRESSION: Cardiomegaly. CT abdomen and pelvis with PO contrast only IMPRESSION: 1. The liver is irregular in contour likely secondary to cirrhosis. 2. Bilateral renal atrophy. 3. Small 5 mm left renal cyst. 4. There is a small amount of ascites. Upper endoscopy IMPRESSION: Normal esophagus. Mild to moderate portal gastropathy in antrum and body of stomach (vs Gastric antral vascular ectasia). Treated with argon beam coagulation. Normal examined duodenum. ( no lesions responsible for acute GI blood loss seen. Portal gastropathy may contribute to a chronic blood loss picture). No specimens collected. DVT prophylaxis ordered?: TEDs, sequentials, and knee high compression. ASSESSMENT AND PLAN: This is a 76-year-old male with symptomatic anemia. PROBLEMS: 1. Acute blood loss anemia secondary to possible GI bleed: Continue the valued assistance of gastroenterology. Discontinued Lactulose and iron supplementation. H/H 8.9/27.2. EGD performed yesterday with results reported above. Recommendations include a PPI twice a day and Sucralfate 1g orally four times a day for one week. GI recommends obtaining follow-up imaging with a CT enterography. No active signs of bleeding at this time. 2. Diabetic leg wound: Culture positive for Enterobacter cloacae. Remains on Ceftriaxone. 3. Liver cirrhosis: Ammonia level is 41. No metabolic encephalopathy appreciated. Discontinued Lactulose. Hepatitis panel is negative. Continue with Propranolol. LFTs are within optimal range. 4. Elevated troponin: Chronically elevated. Likely secondary to CHF and CKD. 5. Diabetes mellitus: Continue with 30 units Levemir, SSI, fingersticks AC/HS, and hypoglycemic protocol. 6. History of grade 2 diastolic CHF: Continue with Demadex twice daily and Metolazone. Continues to be volume overloaded. Minimal negative balance. 7. Chronic kidney disease, stage III: Creatinine 2.72. 8. Hypertension: Continue with current home medications. Stopped Metoprolol and started Propranolol. 9. GERD: Continue with PPI and Sucralfate 1g orally four times a day for one week. 10. Dyslipidemia: Continue with statin. 11. Gout: Continue with Uloric. Likely result of chronic kidney disease. 12. Morbid obesity: Likely complicating medical care. 13. ASIF on CPAP: Continue home CPAP. DISPOSITION: CT enterography. VS, I&O, 24H, Fishbone Vital Signs/I&O Vital Signs Date Time Temp Pulse Resp B/P (MAP) Pulse Ox O2 Delivery O2 Flow Rate FiO2 07/25/17 00:00 97.4 71 21 151/69 (96) 95 Room Air 07/24/17 12:34 10 I&O- Last 24 Hours up to 6 AM 07/26/17 06:00 Output Total 950 ml Balance -950 ml Laboratory Data 24H LABS Laboratory Tests 2 07/24/17 11:30: Bedside Glucose (Misc Panel) 101 07/24/17 16:58: Bedside Glucose (Misc Panel) 299H 07/24/17 19:47: Bedside Glucose (Misc Panel) 276H 07/25/17 05:45: Nucleated Red Blood Cells % (auto) 0.0, Immature Platelet Fraction 4.1 07/25/17 05:46: Anion Gap 9, Glomerular Filtration Rate 24.2L, Blood Urea Nitrogen 64H, Creatinine 2.72H, Sodium Level 139, Potassium Level 3.4L, Chloride Level 97L, Carbon Dioxide Level 33H, Calcium Level 7.9L, Aspartate Amino Transf (AST/SGOT) 37, Alanine Aminotransferase (ALT/SGPT) 34, Alkaline Phosphatase 84, Total Bilirubin 0.9, Total Protein 5.7L, Albumin 2.2L, Magnesium Level 1.7L, Ammonia 41H, Albumin/Globulin Ratio 0.63L CBC/BMP Laboratory Tests 07/25/17 05:45 Red Blood Count 3.01 L, Mean Corpuscular Volume 90.4, Mean Corpuscular Hemoglobin 29.6, Mean Corpuscular Hemoglobin Concent 32.7, Red Cell Distribution Width 16.1 H 07/25/17 05:46 Calcium Level 7.9 L, Aspartate Amino Transf (AST/SGOT) 37, Alanine Aminotransferase (ALT/SGPT) 34, Alkaline Phosphatase 84, Total Bilirubin 0.9, Total Protein 5.7 L, Albumin 2.2 L Microbiology Microbiology 07/22/17 Blood Culture - Preliminary, Resulted No Growth after 48 hours. All Specime... 07/22/17 Blood Culture - Preliminary, Resulted No Growth after 48 hours. All Specime... 07/23/17 Stool Occult Blood (OLE) - Final, Complete 07/22/17 Urine Culture - Final, Complete Escherichia Coli 07/22/17 Wound Culture - Final, Complete Enterobacter Cloacae Complex Streptococcus Viridans Group Staphylococcus Sp EBONY Gary DO Jul 25, 2017 08:48
[2017-07-25] MEDS ORDERED: BISACODYL 5 MG TAB PO SCH (09:00)
[2017-07-25] MEDS ORDERED: SENOKOT S TAB PO SCH (09:00)
[2017-07-25] MEDS ORDERED: GLUCAGON FOR INJ 1 MG VIAL (J1610) As Ordered ONE (09:20)
[2017-07-25] MEDS: HumaLOG INSULIN (NovoLOG) PER UNIT SC SCH ×4 (10:04→21:37)
[2017-07-25] MEDS: ISOSORBIDE MON. (IMDUR) 60 MG XR TAB PO SCH (10:41)
[2017-07-25] MEDS: PANTOPRAZOLE 40MG TAB (PROTONIX) PO SCH ×2 (10:41→21:34)
[2017-07-25] MEDS: TROSPIUM 20 MG TAB PO SCH (10:41)
[2017-07-25] MEDS: TORSEMIDE 20 MG TAB PO SCH ×2 (10:42→17:59)
[2017-07-25] MEDS: FEBUXOSTAT 40 MG TABLET (ULORIC) PO SCH (10:52)
[2017-07-25] MEDS: PROPRANOLOL 20 MG TAB PO SCH ×2 (10:52→21:36)
[2017-07-25] MEDS: NS 1,000 ML IV SCH (12:16)
[2017-07-25] MEDS: SUCRALFATE SUSP 1GM/10ML UD PO SCH ×3 (13:12→21:33)
--- NOTE | 2017-07-25 14:02 | REP ---
CT ABDOMEN PELVIS WITH ORAL CONTRAST ONLY (CT ENTEROGRAPHY): 07/25/2017 CLINICAL HISTORY: Anemia. No IV contrast used in this patient with stage IV chronic kidney disease. COMPARISON: CT 07/22/2017, 06/18/2017. TECHNIQUE: Our protocol for CT enterography was followed, except that no IV contrast given. Four doses of VoLumen given per protocol for total of 1350 mL. Glucagon 0.6 mg IV given and scanning through the abdomen and pelvis with both coronal and sagittal reconstructions provided. The absence of IV contrast diminishes the sensitivity of the exam and evaluating bowel wall thickness and for lesions in the lumen. CT ABDOMEN: The lung bases show minor dependent atelectatic change without infiltrate or effusion. There is cardiomegaly with left atrial and ventricular enlargement. Heavily calcified mitral annulus and no pericardial thickening or effusion. Liver shows an enlarged left hepatic lobe and lobulated contours representing chronic liver disease, cirrhosis. Spleen is mildly enlarged up to 14.7 cm long x 6.3 cm thick at the hilum and with a transverse diameter of 14.3 cm. This gives a calculated splenic index of 1312 with the normal range less than 480. No focal hepatic or splenic mass. There is very large recanalized umbilical vein from the fissure to the umbilicus. Extensive varices in the abdomen and pelvis. There is no generalized ascites. Adrenal glands are normal. Pancreas without mass, ductal dilatation or stone. The gallbladder without calcified stone or mass. The left kidney is severely atrophic with sinus lipomatosis. A few exophytic cysts, one of them hyperdense but all unchanged from previous studies. The right kidney shows a length of 12 cm, which may be compensatory hypertrophy. There is no hydronephrosis, stone or mass. No cyst or perinephric fluid. Some sinus lipomatosis. Heavy vascular calcifications throughout the aorta as well as at the origins of the celiac axis, SMA and both renal arteries. Small bowel loops are not abnormally dilated, they have fluid within but the volume has identical density to the bowel wall and bowel wall thickness cannot be evaluated. I do not see inflammatory changes in the mesentery. A few air-fluid levels in nondilated bowel loops are noted. Lung window review of all CT slices of the abdomen and pelvis shows no perforation or free air. No abscess. No visible periaortic or retroperitoneal pathologic sized lymphadenopathy. Colon shows degenerative disc changes with vacuum phenomena at L3-4 through L5-S1, also at the T11-12. Marginal osteophytes throughout the thoracic spine. No compression deformities on an acute basis. The posterior elements and ribs are without acute finding. CT PELVIS: The sacrum, SI joints, pelvis, hips and pubic rami are unremarkable except for some degenerative change, appropriate for age. No hydronephrosis, hydroureter, renal, ureteral or bladder stones. Bladder is well filled. No distal ureteral dilatation or stone. No ventral or inguinal hernia. Abdominal portion of the colon shows no colitis or diverticulitis. The distal left colon, sigmoid and rectum are without acute inflammatory process, stricture or mass. Pelvic arteries show calcification without aneurysm. There is no inguinal hernia or pathologic sized inguinal adenopathy. Intrinsic and extrinsic pelvic hip and proximal thighs/buttock musculature unremarkable. IMPRESSION: 1. There is evidence of cirrhosis and splenomegaly with recanalized umbilical vein which is quite large and with multiple other abdominal and pelvic varices. 2. There is no ascites or anasarca evident. There is some mild scattered areas of subcutaneous edema in the subcutaneous fat of the abdomen and pelvis. 3. Atrophy of the left kidney with some compensatory hypertrophy on the right. There is severe atherosclerotic calcification of the aorta and calcification in all of its branch origins including the bilateral renal arteries. 4. No dilated small bowel loops or inflammatory changes adjacent to the small bowel and their mesentery. The absence of IV contrast limits sensitivity of the examination for bowel wall thickening or nodularity. The contrast is essentially isodense to the unenhanced bowel. That said, no obstruction, mass, adenopathy or adjacent inflammatory change is seen in the mesentery of the abdomen and pelvis. Signed by Gavino Cisneros MD 07/25/2017 07:40 P
[2017-07-25 15:00] VITALS: BP 139/66
[2017-07-25] MEDS: CEFTRIAXONE SOD 1 GM in APPROPRIATE DILUENT 1 EA IV SCH (15:07)
[2017-07-25 20:30] VITALS: BP 136/66
[2017-07-25] MEDS: VITAMIN D 1,000 INTERNATIONAL UNITS TABLET PO SCH (21:33)
[2017-07-25] MEDS: GABAPENTIN 100 MG CAP PO SCH (21:34)
[2017-07-25] MEDS: SIMVASTATIN 10 MG TAB PO SCH (21:34)
[2017-07-25] MEDS: LEVEMIR (INSULIN DETEMIR) 1 UNITS/0.01ML SC SCH (21:37)
[2017-07-26] MEDS: SLF 3 ML SYR IV SCH ×3 (05:23→21:12)
[2017-07-26 05:37] VITALS: BP 150/69
[2017-07-26 07:59] LABS: MEAN CORPUSCULAR HEMOGLOBIN 29.6 pg (27.0-33.0); MEAN CORPUSCULAR HGB CONC 32.9 g/dl (32.0-36.5); PLATELET COUNT, AUTOMATED 108 10^3/uL (150-450); WHITE BLOOD COUNT 7.5 10^3/uL (4.0-10.0)
[2017-07-26 08:29] LABS: ALBUMIN 2.3 GM/DL (3.2-5.2); ALBUMIN/GLOBULIN RATIO 0.51 (1.00-1.93); BILIRUBIN,TOTAL 0.9 MG/DL (0.2-1.0); CALCIUM LEVEL 8.2 MG/DL (8.8-10.2); CREATININE FOR GFR 2.8 MG/DL (0.70-1.30); GLOMERULAR FILTRATION RATE 23.4 (>42); MAGNESIUM LEVEL 1.8 MG/DL (1.8-2.4); POTASSIUM SERUM 3.9 MEQ/L (3.5-5.1); TOTAL PROTEIN 6.8 GM/DL (6.4-8.2)
[2017-07-26] MEDS: PROPRANOLOL 20 MG TAB PO SCH ×2 (09:00→21:11)
[2017-07-26] MEDS: SUCRALFATE SUSP 1GM/10ML UD PO SCH ×4 (09:04→21:09)
[2017-07-26] MEDS: HumaLOG INSULIN (NovoLOG) PER UNIT SC SCH ×4 (09:06→21:10)
[2017-07-26] MEDS: TORSEMIDE 20 MG TAB PO SCH (09:08)
[2017-07-26] MEDS: PANTOPRAZOLE 40MG TAB (PROTONIX) PO SCH ×2 (09:08→21:11)
[2017-07-26] MEDS: FEBUXOSTAT 40 MG TABLET (ULORIC) PO SCH (09:08)
[2017-07-26] MEDS: metOLazone 2.5 MG TAB PO SCH (09:09)
[2017-07-26] MEDS: ISOSORBIDE MON. (IMDUR) 60 MG XR TAB PO SCH (09:11)
--- NOTE | 2017-07-26 11:07 | IPNPDOC ---
Date Seen The patient was seen on 07/26/17. Progress Note SUBJECTIVE: Patient is a 76-year-old male with symptomatic anemia. Patient is evaluated at bedside this morning. Patient says he is bored and would like to go home. CT enterography showed atherosclerosis, varices, cirrhosis, splenomegaly, and left atrophic kidney. No active signs of bleeding. Patient denies chest pain, bleeding from any orifice, shortness of breath. Patient's sodium was low this morning, which is unusual since it has been within optimal range during admission. Renal function is slightly elevated from baseline. OBJECTIVE PHYSICAL EXAMINATION: VITAL SIGNS: Please see below. GENERAL: Obese male, appears stated age, well nourished, well developed, no acute distress HEENT: Atraumatic, normocephalic, PERRL, EOMI, oral mucosa appears pink, but lips are somewhat dry, nasal septum appears midline, nares are patent CARDIOVASCULAR: Regular rate and rhythm, normal S1 and S2, no murmur, rub, click RESPIRATORY: Clear to auscultation bilaterally, poor inspiratory and expiratory airway excursion likely due to body habitus, no wheeze, rhonchi, crackles ABDOMINAL: Obese, soft, non-tender, non-distended, bowel sounds appreciated, ecchymoses are appreciated on the right lower quadrant EXTREMITIES: Multiple ecchymoses appreciated on the upper extremities bilaterally, chronic venous stasis dermatitis bilaterally on lower extremities, +2 pitting edema bilaterally up to the thigh, diabetic wound noted on left lower extremity with granulation tissue present, radial pulses appreciated and equal bilaterally, +2 NEUROLOGICAL: CN II-XII grossly intact PSYCHOLOGICAL: Alert and conversant LABORATORY DATA: Please see below. MICROBIOLOGY: Please see below. IMAGING: Duplex venous ultrasound, bilaterally IMPRESSION: There is no deep venous thrombosis. CT head without contrast IMPRESSION: 1. Small vessel ischemic disease per 2. Moderate volume loss. Portable chest x-ray IMPRESSION: Cardiomegaly. CT abdomen and pelvis with PO contrast only IMPRESSION: 1. The liver is irregular in contour likely secondary to cirrhosis. 2. Bilateral renal atrophy. 3. Small 5 mm left renal cyst. 4. There is a small amount of ascites. Upper endoscopy IMPRESSION: Normal esophagus. Mild to moderate portal gastropathy in antrum and body of stomach (vs Gastric antral vascular ectasia). Treated with argon beam coagulation. Normal examined duodenum. ( no lesions responsible for acute GI blood loss seen. Portal gastropathy may contribute to a chronic blood loss picture). No specimens collected. CT abdomen and pelvis without contrast IMPRESSION: 1. There is evidence of cirrhosis and splenomegaly with recanalized umbilical vein which is quite large and with multiple other abdominal and pelvic varices. 2. There is no ascites or anasarca evident. There is some mild scattered areas of subcutaneous edema in the subcutaneous fat of the abdomen and pelvis. 3. Atrophy of the left kidney with some compensatory hypertrophy on the right. There is severe atherosclerotic calcification of the aorta and calcification in all of its branch origins including the bilateral renal arteries. 4. No dilated small bowel loops or inflammatory changes adjacent to the small bowel and their mesentery. The absence of IV contrast limits sensitivity of the examination for bowel wall thickening or nodularity. The contrast is essentially isodense to the unenhanced bowel. That said, no obstruction, mass, adenopathy or adjacent inflammatory change is seen in the mesentery of the abdomen and pelvis. DVT prophylaxis ordered?: TEDs, sequentials, and knee high compression. ASSESSMENT AND PLAN: This is a 76-year-old male with symptomatic anemia. PROBLEMS: 1. Hyponatremia: Consulted nephrology who have adjusted patient's Torsemide. Also started Spironolactone. No urinary complaints expressed by patient. 1. Acute blood loss anemia secondary to possible GI bleed: Continue the valued assistance of gastroenterology. H/H 10.09/18.7. No active signs of bleeding. Continue with PPI and Sucralfate. Could consider capsule endoscopy to further evaluate for etiology of bleeding. 2. Diabetic leg wound: Culture positive for Enterobacter cloacae, Streptococcus viridans, and Staphylococcus species coagulase negative. Remains on Ceftriaxone. 3. Liver cirrhosis with abdominal aortic varices: Ammonia level is 43. No metabolic encephalopathy appreciated. Discontinued Lactulose. Hepatitis panel is negative. Continue with Propranolol. LFTs are within optimal range. 4. Elevated troponin: Chronically elevated. Likely secondary to CHF and CKD. 5. Diabetes mellitus: Continue with 30 units Levemir, SSI, fingersticks AC/HS, and hypoglycemic protocol. 6. History of grade 2 diastolic CHF: Continue with Demadex twice daily and Metolazone. Continues to be volume overloaded. Minimal negative balance. 7. Chronic kidney disease, stage III: Creatinine 2.8. Nephrology has been consulted. 8. Hypertension: Continue with current home medications. Stopped Metoprolol and started Propranolol. 9. GERD: Continue with PPI and Sucralfate 1g orally four times a day for one week. 10. Dyslipidemia: Continue with statin. 11. Gout: Continue with Uloric. Likely result of chronic kidney disease. 12. Morbid obesity: Likely complicating medical care. 13. ASIF on CPAP: Continue home CPAP. DISPOSITION: Hyponatremia - nephrology consulted. Potential discharge in 24- 48 hours. VS, I&O, 24H, Fishbone Vital Signs/I&O Vital Signs Date Time Temp Pulse Resp B/P (MAP) Pulse Ox O2 Delivery O2 Flow Rate FiO2 07/26/17 09:11 133/59 07/26/17 09:00 59 07/26/17 05:37 97.9 18 95 Room Air 07/24/17 12:34 10 Laboratory Data 24H LABS Laboratory Tests 2 07/25/17 11:55: Bedside Glucose (Misc Panel) 274H 07/25/17 17:08: Bedside Glucose (Misc Panel) 241H 07/25/17 20:24: Bedside Glucose (Misc Panel) 304H 07/26/17 06:30: Bedside Glucose (Misc Panel) 159H 07/26/17 07:44: Anion Gap 12, Glomerular Filtration Rate 23.4L, Blood Urea Nitrogen 64H, Creatinine 2.80H, Sodium Level 130#L, Potassium Level 3.9, Chloride Level 92L, Carbon Dioxide Level 26, Calcium Level 8.2L, Aspartate Amino Transf (AST/SGOT) 51H, Alanine Aminotransferase (ALT/SGPT) 37, Alkaline Phosphatase 100, Total Bilirubin 0.9, Total Protein 6.8, Albumin 2.3L, Magnesium Level 1.8, Ammonia 43H , Albumin/Globulin Ratio 0.51L 07/26/17 07:45: Nucleated Red Blood Cells % (auto) 0.0 CBC/BMP Laboratory Tests 07/26/17 07:44 Calcium Level 8.2 L, Aspartate Amino Transf (AST/SGOT) 51 H, Alanine Aminotransferase (ALT/SGPT) 37, Alkaline Phosphatase 100, Total Bilirubin 0.9, Total Protein 6.8, Albumin 2.3 L 07/26/17 07:45 Red Blood Count 3.41 L, Mean Corpuscular Volume 90.0, Mean Corpuscular Hemoglobin 29.6, Mean Corpuscular Hemoglobin Concent 32.9, Red Cell Distribution Width 16.0 H Microbiology Microbiology 07/22/17 Blood Culture - Preliminary, Resulted No Growth after 72 hours. All specime... 07/22/17 Blood Culture - Preliminary, Resulted No Growth after 72 hours. All specime... 07/23/17 Stool Occult Blood (OLE) - Final, Complete 07/22/17 Urine Culture - Final, Complete Escherichia Coli 07/22/17 Wound Culture - Final, Complete Enterobacter Cloacae Complex Streptococcus Viridans Group Staphylococcus Sp EBONY Gary DO Jul 26, 2017 11:07
[2017-07-26] MEDS: SPIRONOLACTONE 25 MG TAB PO SCH (12:48)
[2017-07-26 14:00] VITALS: BP 136/65
[2017-07-26] MEDS: CEFTRIAXONE SOD 1 GM in APPROPRIATE DILUENT 1 EA IV SCH (14:27)
[2017-07-26] MEDS: ACETAMINOPHEN TAB 650MG DOSE (2X325MG) PO PRN (14:28)
[2017-07-26 20:00] VITALS: BP 117/56
[2017-07-26] MEDS: LEVEMIR (INSULIN DETEMIR) 1 UNITS/0.01ML SC SCH (21:00)
[2017-07-26] MEDS: VITAMIN D 1,000 INTERNATIONAL UNITS TABLET PO SCH (21:11)
[2017-07-26] MEDS: SIMVASTATIN 10 MG TAB PO SCH (21:11)
[2017-07-26] MEDS: TROSPIUM 20 MG TAB PO SCH (21:11)
[2017-07-26] MEDS: GABAPENTIN 100 MG CAP PO SCH (21:11)
[2017-07-27 05:15] VITALS: BP 123/96
[2017-07-27] MEDS: SLF 3 ML SYR IV SCH ×2 (06:00→14:00)
--- NOTE | 2017-07-27 07:11 | CR ---
DATE OF CONSULTATION: 07/26/2017 REQUESTING PHYSICIAN: Dr. Yojana Alejo. CONSULTING PHYSICIAN: Dr. Barnard. REASON FOR CONSULTATION: Management of acute kidney injury superimposed on chronic kidney disease, and management of diuretics with history of fluid overload. CHIEF COMPLAINT: The patient was admitted on 07/22/2017, with altered mental status and was later on found to have symptomatic anemia. HISTORY OF PRESENT ILLNESS: Tomasa Robles is a 76-year-old male with past medical history of chronic kidney disease stage III with a baseline creatinine of around 2.5 as of June 2017. He has morbid obesity and diastolic congestive heart failure, liver cirrhosis and portal hypertension, and portal hypertensive gastropathy, well known to nephrology service from previous admissions and from outpatient clinic. He was admitted on 07/22/2017, with altered mental status. He was found to have symptomatic anemia secondary to possible gastrointestinal (GI) bleeding. The patient was resuscitated, was given blood. His creatinine on admission was 2.6, which has slowly gone up to 2.8 today. Of note, the patient is being diuresed with oral diuretics because of history of congestive heart failure (CHF) and lower extremity edema, so today nephrology service was called for further help in the management of this patient with history of fluid overload, cirrhosis, lower extremity edema, and now worsening renal function. I saw the patient today morning at the bedside. He did not have any active complaints. Patient reported that he is making a lot of urine. His leg edema is improving, and the patient actually wanted to go home and have his problems managed as outpatient. PAST MEDICAL HISTORY: The patient has past medical history of chronic kidney disease stage III, baseline creatinine of around 2.5, diastolic heart failure, morbid obesity, diabetes mellitus type 2, hypertension, obstructive sleep apnea on continuous positive airway pressure (CPAP), history of gout secondary to chronic kidney disease, cirrhosis of the liver with portal hypertension. PAST SURGICAL HISTORY: History of bilateral cataract surgery. ALLERGIES: No known drug allergies. FAMILY HISTORY: There is positive family history of diabetes in siblings. No history of end-stage renal disease requiring hemodialysis in the family. Positive history of heart disease in mother and stroke in father. SOCIAL HISTORY: The patient lives with his . He denies any smoking, illicit drug abuse or alcohol abuse. REVIEW OF SYSTEMS: CONSTITUTIONAL: The patient denies any fever, chills, rigors. EYES: He denies any blurry vision or double vision. ENT: He denies any dysphagia, odynophagia or ear discharge. CARDIOVASCULAR: He denies any chest pain or palpitations. He does report lower extremity edema but he reports that edema is improving. RESPIRATORY: He denies any shortness of breath or wheezing. GASTROINTESTINAL (GI): The patient reports recent GI bleeding, and he reports history of cirrhosis, but he denies any constipation or nausea or vomiting. GENITOURINARY: He denies any dysuria, hematuria. MUSCULOSKELETAL: He denies any muscle aches and pains. He does report ulcer in the right leg. CENTRAL NERVOUS SYSTEM (TELEVISION SPECIALIST): He denies any stroke or seizures or weakness. SKIN: He reports blisters on lower extremities and ulcer on right leg. PSYCHIATRIC: He denies any depression or anxiety. ENDOCRINE: He reports history of diabetes. All other review of systems is negative. PHYSICAL EXAMINATION: GENERAL: The patient is morbidly obese sitting in the bed, in no apparent distress. VITAL SIGNS: Temperature is 98.1 degrees Fahrenheit, blood pressure is 117/56, pulse is 62, respiratory rate of 18, saturating 93% on room air. INTAKE AND OUTPUT: Urine output recorded yesterday as 2.2 liters. The patient has been in one liter negative fluid balance for the last two days. Weight in the bed scale was 145.6 kg. HEAD/NECK: Extraocular muscles intact. Pupils equal, round, and reactive to light. Mucous membranes are moist. Neck is supple. There is no jugular venous distention (JVD). CARDIOVASCULAR: S1, S2. Regular rate. No murmur, rub, or gallop. The patient has 2+ edema on the bilateral lower extremities with some blisters. There is an ulcer on the right leg covered with a dressing. RESPIRATORY: Chest is clear to auscultation bilaterally. Bilateral equal air entry. No rales or rhonchi. ABDOMEN: Obese, soft. Positive bowel sounds. Nontender. No ascites. No organomegaly. MUSCULOSKELETAL: No clubbing or cyanosis. Pulses are 2+, and 2+ edema of the bilateral lower extremities as mentioned above. CENTRAL NERVOUS SYSTEM (TELEVISION SPECIALIST): No focal neurological deficit. Power is 5/5 in bilateral extremities. PSYCHIATRIC: Normal mood and affect. LABORATORY DATA: CBC showed a WBC of 7.5, hemoglobin 10.1, platelets 108. Urinalysis was done on 07/22 which showed 1+ blood. There is no repeat urinalysis available at this time. BMP done today morning showed sodium 130, potassium 3.9, chloride 92, bicarbonate 26, BUN 64, creatinine 2.8, calcium 8.2, magnesium 1.8, AST 51, ALT 31, alkaline phosphatase 100, ammonia 43, albumin 2.3. MICROBIOLOGY: Wound culture of the right leg is growing multiple organisms including Staphylococcus viridans, Staphylococcus aureus, and Enterobacter, and the patient's urine culture also grew Escherichia (E.) coli. IMAGING: A CT scan of the abdomen and pelvis with oral contrast was done which showed cirrhosis and splenomegaly, and recannulized umbilical vein. There was no ascites or anasarca. Atrophy of the left kidney with hypertrophy of the right kidney. CURRENT INPATIENT MEDICATIONS: The patient's medications were all reviewed by me. He is on: - Rocephin 1 gram IV every 24 - Tylenol as needed - Uloric 40 mg daily - gabapentin 200 mg at bedtime - insulin Levemir 30 units at bedtime - insulin lispro sliding scale - isosorbide 60 mg daily - he was on metolazone every two days which has been stopped - Protonix 40 mg by mouth twice a day - Inderal 40 mg by mouth twice a day - simvastatin 20 mg at bedtime - I started the patient on spironolactone 25 mg in the morning - he is on Sucralfate 1 gram with meals - he was on torsemide 40 mg by mouth twice a day; I have decreased the dose to 40 mg daily - tramadol 50 mg every four hours as needed - vitamin D daily - trospium 20 mg at bedtime ASSESSMENT: A 76-year-old male with past medical history of chronic kidney disease stage III, baseline creatinine of 2.5, history of cirrhosis, congestive heart failure (CHF), hypertension, nephrology service following the patient for management of acute kidney injury. PLAN: 1. Acute kidney injury superimposed on chronic kidney disease stage IV: The patient's baseline creatinine is around 2.5. His creatinine has bumped up to 2.8 today. Most likely he is slightly intravascularly depleted because I see he is in negative fluid balance for the last two days. I have decreased the patient's torsemide to 40 mg by mouth daily. I have added spironolactone 25 mg daily because of history of cirrhosis and to help with hypokalemia induced by torsemide. Hopefully, the patient's creatinine should improve back to his baseline. 2. Hyponatremia: It is most likely hypovolemic hyponatremia. The patient is making a lot of urine for the last three days. I have cut down the diuretic dose. However, I am going to ahead and order the urine osmolarity and urine sodium level. Continue the fluid restriction at two liters per day, and continue low dose of diuretic. 3. History of diastolic congestive heart failure: The patient was on torsemide 40 mg twice a day, metolazone 2.5 mg every other day. I have stopped the metolazone, and combination of torsemide and daily spironolactone should be enough for optimization of patient's volume status. 4. Liver cirrhosis with portal hypertensive gastropathy: The patient continues to be on Protonix 40 mg twice a day. He is on Sucralfate. The patient is also on propranolol 40 mg by mouth twice a day which will help with hypertension and portal hypertension. The rest of the management is as per gastroenterology (GI) recommendations. 5. Symptomatic anemia: The patient's hemoglobin is stable at 10.1 now. Continue to monitor complete blood count (CBC). Transfuse as needed for hemoglobin below eight. The patient is status post three units packed red blood cells (PRBCs) transfusion during this admission. 6. Hypertension: Blood pressure is acceptable at this time. Continue propranolol. Continue isosorbide 60 mg by mouth daily, and continue the diuretic. 7. Gout secondary to chronic kidney disease: Continue current dose of Uloric 40 mg by mouth daily. Thank you for involving us in the care of this patient. We shall follow the patient along with you tomorrow morning.
[2017-07-27] MEDS: SUCRALFATE SUSP 1GM/10ML UD PO SCH ×2 (07:48→11:55)
[2017-07-27] MEDS: HumaLOG INSULIN (NovoLOG) PER UNIT SC SCH ×2 (07:49→11:56)
[2017-07-27] MEDS: SPIRONOLACTONE 25 MG TAB PO SCH (07:50)
[2017-07-27] MEDS: FEBUXOSTAT 40 MG TABLET (ULORIC) PO SCH (07:50)
[2017-07-27] MEDS: PANTOPRAZOLE 40MG TAB (PROTONIX) PO SCH (07:50)
[2017-07-27 07:54] LABS: MEAN CORPUSCULAR HEMOGLOBIN 29.8 pg (27.0-33.0); MEAN CORPUSCULAR HGB CONC 34.4 g/dl (32.0-36.5); MEAN CORPUSCULAR VOLUME 86.8 fl (80.0-96.0); PLATELET COUNT, AUTOMATED 100 10^3/uL (150-450); RED CELL DISTRIBUTION WIDTH 15.9 % (11.5-14.5); WHITE BLOOD COUNT 5.7 10^3/uL (4.0-10.0)
[2017-07-27 07:55] VITALS: BP 161/87
[2017-07-27] MEDS: ISOSORBIDE MON. (IMDUR) 60 MG XR TAB PO SCH (07:55)
[2017-07-27] MEDS: PROPRANOLOL 20 MG TAB PO SCH (07:55)
[2017-07-27 08:45] LABS: ALBUMIN 2.3 GM/DL (3.2-5.2); ALBUMIN/GLOBULIN RATIO 0.58 (1.00-1.93); BILIRUBIN,TOTAL 0.8 MG/DL (0.2-1.0); CALCIUM LEVEL 8.3 MG/DL (8.8-10.2); CREATININE FOR GFR 2.85 MG/DL (0.70-1.30); MAGNESIUM LEVEL 1.9 MG/DL (1.8-2.4); POTASSIUM SERUM 3.3 MEQ/L (3.5-5.1); TOTAL PROTEIN 6.3 GM/DL (6.4-8.2)
[2017-07-27 09:00] VITALS: BP 161/87
[2017-07-27] MEDS ORDERED: TORSEMIDE 20 MG TAB PO SCH (09:00)
[2017-07-27] MEDS ORDERED: CEFDINIR 300 MG CAP (OMNICEF) PO SCH (09:00)
[2017-07-27] MEDS ORDERED: POTASSIUM CHLORIDE 10 MEQ SR TABLET PO SCH (11:00)
--- NOTE | 2017-07-27 11:02 | IPNPDOC ---
Date Seen The patient was seen on 07/27/17. Progress Note SUBJECTIVE: Patient is a 76-year-old male with symptomatic anemia. Patient is evaluated at bedside this morning. He is laying in bed resting comfortably. Patient was evaluated by nephrology yesterday who adjusted his Torsemide to once daily, added Spironolactone, and discontinued Metolazone. Patient continues to deny chest pain, shortness of breath, bleeding from any orifice, headache, numbness, tingling, lightheadedness, weakness. His sodium continues to be low at 130 and his potassium was low as well. Patient would like to go home. He thinks that his renal problems can be managed out-patient and he already follows with the local dental officer. OBJECTIVE PHYSICAL EXAMINATION: VITAL SIGNS: Please see below. GENERAL: Obese male, appears stated age, well nourished, well developed, no acute distress HEENT: Atraumatic, normocephalic, PERRL, EOMI, oral mucosa appears pink, but lips are somewhat dry, nasal septum appears midline, nares are patent, edentulous CARDIOVASCULAR: Regular rate and rhythm, normal S1 and S2, no murmur, rub, click RESPIRATORY: Clear to auscultation bilaterally, poor inspiratory and expiratory airway excursion likely due to body habitus, no wheeze, rhonchi, crackles ABDOMINAL: Obese, soft, non-tender, non-distended, bowel sounds appreciated EXTREMITIES: Multiple ecchymoses appreciated on the upper extremities bilaterally, chronic venous stasis dermatitis bilaterally on lower extremities, +3 pitting edema bilaterally up to the thigh, diabetic wound noted on left lower extremity with granulation tissue present, radial pulses appreciated and equal bilaterally, +2 NEUROLOGICAL: CN II-XII grossly intact PSYCHOLOGICAL: Alert and conversant LABORATORY DATA: Please see below. MICROBIOLOGY: Please see below. IMAGING: Duplex venous ultrasound, bilaterally IMPRESSION: There is no deep venous thrombosis. CT head without contrast IMPRESSION: 1. Small vessel ischemic disease per 2. Moderate volume loss. Portable chest x-ray IMPRESSION: Cardiomegaly. CT abdomen and pelvis with PO contrast only IMPRESSION: 1. The liver is irregular in contour likely secondary to cirrhosis. 2. Bilateral renal atrophy. 3. Small 5 mm left renal cyst. 4. There is a small amount of ascites. Upper endoscopy IMPRESSION: Normal esophagus. Mild to moderate portal gastropathy in antrum and body of stomach (vs Gastric antral vascular ectasia). Treated with argon beam coagulation. Normal examined duodenum. (no lesions responsible for acute GI blood loss seen. Portal gastropathy may contribute to a chronic blood loss picture). No specimens collected. CT abdomen and pelvis without contrast IMPRESSION: 1. There is evidence of cirrhosis and splenomegaly with recanalized umbilical vein which is quite large and with multiple other abdominal and pelvic varices. 2. There is no ascites or anasarca evident. There is some mild scattered areas of subcutaneous edema in the subcutaneous fat of the abdomen and pelvis. 3. Atrophy of the left kidney with some compensatory hypertrophy on the right. There is severe atherosclerotic calcification of the aorta and calcification in all of its branch origins including the bilateral renal arteries. 4. No dilated small bowel loops or inflammatory changes adjacent to the small bowel and their mesentery. The absence of IV contrast limits sensitivity of the examination for bowel wall thickening or nodularity. The contrast is essentially isodense to the unenhanced bowel. That said, no obstruction, mass, adenopathy or adjacent inflammatory change is seen in the mesentery of the abdomen and pelvis. DVT prophylaxis ordered?: TEDs, sequentials, and knee high compression. ASSESSMENT AND PLAN: This is a 76-year-old male with symptomatic anemia. PROBLEMS: 1. Hyponatremia, hypovolemic: Consulted nephrology who have discontinued Metolazone, adjusted Torsemide to once daily, and added Spironolactone. Likley that patient's diuretics were volume depleting him. However, sodium to continues to remain low. 2. Hypokalemia: Replenishment provided. 3. Liver cirrhosis with abdominal aortic varices and portal gastropathy: Ammonia level is 42. Patient is alert and oriented. No metabolic encephalopathy noted. Continue with Propranolol. LFTs stable. Lactulose discontinued. Hepatitis panel negative. 4. Acute blood loss anemia secondary to possible GI bleed: H/H 9.7/28.2. No active signs of bleeding. Continue with PPI and Sucralfate. Could consider capsule endoscopy to further evaluate for etiology of bleeding. 5. Diabetic leg wound: Culture positive for Enterobacter cloacae, Streptococcus viridans, and Staphylococcus species coagulase negative. De- escalate antibiotic to Omnicef. 6. Elevated troponin: Chronically elevated. Likely secondary to CHF and CKD. 7. Diabetes mellitus: Continue with 30 units Levemir, SSI, fingersticks AC/HS, and hypoglycemic protocol. 8. History of grade 2 diastolic CHF: Continue with Demadex twice daily and Metolazone. Continues to be volume overloaded. Minimal negative balance. 9. Chronic kidney disease, stage III: Creatinine 2.8. Nephrology has been consulted. 10. Hypertension: Continue with current home medications. Stopped Metoprolol and started Propranolol. 11. GERD: Continue with PPI and Sucralfate 1g orally four times a day for one week. 12. Dyslipidemia: Continue with statin. 13. Gout: Continue with Uloric. Likely result of chronic kidney disease. 14. Morbid obesity: Likely complicating medical care. 15. ASIF on CPAP: Continue home CPAP. DISPOSITION: Continue to appreciate the valued assistance of nephrology. VS, I&O, 24H, Fishbone Vital Signs/I&O Vital Signs Date Time Temp Pulse Resp B/P (MAP) Pulse Ox O2 Delivery O2 Flow Rate FiO2 07/27/17 09:00 Room Air 07/27/17 09:00 97.1 62 18 161/87 (111) 95 07/24/17 12:34 10 I&O- Last 24 Hours up to 6 AM 07/28/17 06:00 Intake Total 360 ml Balance 360 ml Laboratory Data 24H LABS Laboratory Tests 2 07/26/17 12:20: Bedside Glucose (Misc Panel) 226H 07/26/17 17:02: Bedside Glucose (Misc Panel) 285H 07/26/17 19:50: Bedside Glucose (Misc Panel) 340H 07/27/17 07:33: Bedside Glucose (Misc Panel) 205H 07/27/17 07:44: Nucleated Red Blood Cells % (auto) 0.0, Anion Gap 8, Glomerular Filtration Rate 23.0L, Blood Urea Nitrogen 68H, Creatinine 2.85H, Sodium Level 130L, Potassium Level 3.3L, Chloride Level 91L, Carbon Dioxide Level 31, Calcium Level 8.3L, Aspartate Amino Transf (AST/SGOT) 40H, Alanine Aminotransferase (ALT/SGPT) 34, Alkaline Phosphatase 109, Total Bilirubin 0.8, Total Protein 6.3L, Albumin 2.3L , Magnesium Level 1.9, Ammonia 42H, Albumin/Globulin Ratio 0.58L CBC/BMP Laboratory Tests 07/27/17 07:44 Red Blood Count 3.25 L, Mean Corpuscular Volume 86.8, Mean Corpuscular Hemoglobin 29.8, Mean Corpuscular Hemoglobin Concent 34.4, Red Cell Distribution Width 15.9 H, Calcium Level 8.3 L, Aspartate Amino Transf (AST/SGOT ) 40 H, Alanine Aminotransferase (ALT/SGPT) 34, Alkaline Phosphatase 109, Total Bilirubin 0.8, Total Protein 6.3 L, Albumin 2.3 L Microbiology Microbiology 07/22/17 Blood Culture - Preliminary, Resulted No Growth after 72 hours. All specime... 07/22/17 Blood Culture - Final, Complete NO GROWTH AFTER 5 DAYS 07/23/17 Stool Occult Blood (OLE) - Final, Complete 07/22/17 Urine Culture - Final, Complete Escherichia Coli 07/22/17 Wound Culture - Final, Complete Enterobacter Cloacae Complex Streptococcus Viridans Group Staphylococcus Sp EBONY Gary DO Jul 27, 2017 11:02
[2017-07-27] MEDS ORDERED: POTASSIUM CHLORIDE 10 MEQ SR TABLET PO ONE (15:00)
[2017-07-27] MEDS ORDERED: ALDA25TA2 PO (15:40)
[2017-07-27] MEDS ORDERED: CEFD300CAP PO (15:40)
[2017-07-27] MEDS ORDERED: DEMA20TA6 PO (15:40)
[2017-07-27] MEDS ORDERED: SUCR10SS PO (15:40)
[2017-07-27] MEDS ORDERED: PANT40TA2 PO (15:40)
--- NOTE | 2017-07-27 21:49 | IPN ---
DATE: 07/27/2017 SUBJECTIVE: The patient is seen this morning at the bedside. He denies any and all complaints. He reiterates time and again that he wants to go home. Reports that he is trying to comply with fluid restriction. Denies any shortness of breath at rest. VITAL SIGNS: Temperature 97.1, pulse 62, respiratory rate 18, blood pressure 161/87, saturating 95% on room air. Intake and output: Intake is recorded as 1560, his output is not recorded. GENERAL: The patient is seen lying in bed, comfortable, in no acute distress. He is morbidly obese. Extraocular muscles are intact. The neck is supple. There is no jugular venous distention (JVD). Oral mucosa is moist. CARDIAC: S1, S2. Regular rate. There is 2+ pitting edema in the bilateral lower extremities. There is chronic venous changes and an ulcer on the right leg. RESPIRATORY: The chest is clear to auscultation with bilateral symmetric air entry. There are no overt crackles or rales. He is comfortable on room air. ABDOMEN: Soft, obese, nontender. NEUROLOGIC: The patient is at baseline mentation. There are no focal deficits. He moves all extremities on command. PSYCHIATRIC: Appropriate mood and affect. LABORATORY DATA: Corrected sodium is 132, potassium is 3.3, bicarbonate is 31, BUN 68, creatinine 2.8, glucose 191. Corrected calcium 9.7, magnesium 1.9, ammonia 42. IMAGING: CT scan of the pelvis 07/25/2017 showed evidence of cirrhosis and splenomegaly. Abdominal varices. There are no ascites or anasarca. There is atrophy at the left kidney and compensatory hypertrophy on the right. There are vascular calcifications present in the aorta and at its branches. INPATIENT MEDICATIONS: The patient was given 40 mEq of potassium. He is put on Cefdinir per the primary team and Rocephin is discontinued. There is no other change in the medications. PROBLEMS: 1. Acute kidney injury on chronic kidney disease stage IV. His renal function has plateaued the previous 48 hours and I have not made any change in the patient's diuretic regimen today. He does have a history of significant hyperuricemia and I have ordered a uric acid level for the morning. 2. History of diastolic congestive heart failure (CHF) with peripheral edema. The patient's diuretic regimen is deescalated from prior. His urine output is not recorded, neither is his daily weight. We will request nursing staff to document both of those for further data available for diuretic titration. At present, I will leave him on a combination of torsemide and spironolactone. Continue fluid restriction to 2 liters per day, which the patient chronically struggles with. His overall weight is decreased from admission. 3. Hyponatremia. Mild, asymptomatic hypervolemic hyponatremia. Corrected sodium is 132 today, when glucose of 190 is taken into account. There is limited utility of urine studies given that the patient is on concurrent diuretics. However urine osmolality and sodium are pending. Would continue with diuretics at this time and stress oral fluid restriction. 4. Liver cirrhosis with portal hypertensive gastropathy and abdominal pelvic varices. The patient continues on Protonix, propranolol and sucralfate. His ammonia levels have been fairly stable in the 40s without use of lactulose. 5. Symptomatic anemia. The patient has had recurrent admissions and multiple packed red blood cell transfusions for the same. He had an EGD on this admission, which revealed portal gastropathy, treated with argon beam coagulation . His hemoglobin has been stable the past several days. He continues on Protonix and sucralfate. 6. Gout. The patient has a history of severely elevated uric acid levels in the past. We will check a uric acid level in the morning. He continues on Uloric. DISCHARGE PLANNING: The patient's renal function has plateaued. He has peripheral edema but is comfortable on room air with fairly clear lungs. His corrected sodium today is 132. Would continue oral diuretic regimen at this time with fluid restriction and close follow up in outpatient nephrology office. [facility]
--- NOTE | 2017-07-28 15:10 | DS.PDOC ---
Discharge Summary General Date of Admission Jul 22, 2017 at 12:41 Date of Discharge 07/27/2017 Attending Physician: ZULEYKA ARZATE MD Specialist/Consultants Involve: COSTA DOLL MD Specialist/Consultants Involve Nephrology: Dr. Poly Aggarwal Discharge Summary PROCEDURES PERFORMED DURING STAY: Upper GI endoscopy IMPRESSION: Normal esophagus. Mild to moderate portal gastropathy in antrum and body of stomach (vs Gastric antral vascular ectasia). Treated with argon beam coagulation. Normal examined duodenum. (no lesions responsible for acute GI blood loss seen. Portal gastropathy may contribute to a chronic blood loss picture). No specimens collected. ADMITTING DIAGNOSES: 1. Symptomatic anemia from acute blood loss. 2. Lactic acidosis. 3. Elevated troponin. 4. Liver cirrhosis with portal hypertension. SECONDARY DIAGNOSES: 1. Hypertension. 2. Dyslipidemia. 3. Diabetes mellitus. 4. ASIF on CPAP. 5. Gout. 6. Diastolic congestive heart failure. DISCHARGE DIAGNOSES: 1. Symptomatic anemia for acute GI blood loss. 2. Hypovolemic hyponatremia. 2. Diabetic wound. 3. Liver cirrhosis with portal gastropathy. 4. Hypokalemia. COMPLICATIONS/CHIEF COMPLAINT: Anemia. HISTORY OF PRESENT ILLNESS: 76-year-old male with past medical history of hypertension, dyslipidemia, diabetes mellitus, ASIF on CPAP, gout, diastolic congestive heart failure, CK a stage III, and Liver Cirrhosis/Portal HTN identified on CT Abd 05/2017 presents to the ER with a chief complaint of generalized malaise/weakness. The patient was recently admitted from 07/16- for GI bleed. At that time, an EGD and colonoscopy was performed and did not reveal any acute source of bleeding. The patient was transfused 5 units of packed red blood cells and subsequently discharged home. However, over the last few days since discharge, the patient has developed generalized weakness and malaise. The patient states that he was also confused yesterday. He denies noting any fevers, chills, chest pain, palpitations, abdominal pain, black/ tarry colored stools, or any nausea/vomiting/diarrhea. In the ER, the patient's hemoglobin level was noted to be 7.3. In addition, the patient was also noted to have elevated lactate level of 2.4. The patient will be admitted to the hospitalist service for further evaluation and management. HOSPITAL COURSE: Patient was admitted. Consented for blood product and transfused three units of PRBC. Monitored H/Hs and obtained stool for occult blood, which was positive. Evaluated for hemolysis. Results were essentially negative. Imaging obtained with results reported below. Gastroenterology consulted and patient underwent upper GI endoscopy with results reported above. Recommendations included remaining on a PPI indefinitely and continuing Sucralfate for one week. Repeat lactic acid was within optimal range. Monitored LFTs secondary to liver cirrhosis with portal hypertension. Ammonia level was monitored. Hepatitis panel was negative. Changed patients beta- marc to Propranolol to improve varices. Initially started on Lactulose, but discontinued as patient improved clinically. Patient was also on iron for anemia which was discontinued as it was likely contributing to stool's discoloration. Trended cardiac markers, but likely chronically elevated due to chronic kidney disease. Managed patient's diabetes with SSI, fingersticks, and hypoglycemic protocol. Patient did develop asymptomatic hyponatremia. Nephrology was consulted with recommendations outlined below. Diabetic wound on left lower extremity was managed appropriately. Patient to continue with oral antibiotic prescribed for 10 more days. Other chronic medical conditions were managed appropriately. Patient improved clinically with no more episodes of acute bleeding. Stable at time of discharge. Nephrology consult: Acute kidney injury superimposed on chronic kidney disease stage IV - The patient's baseline creatinine is around 2.5. His creatinine has bumped up to 2.8 today. Most likely he is slightly intravascularly depleted because I see he is in negative fluid balance for the last two days. I have decreased the patient's torsemide to 40 mg by mouth daily. I have added spironolactone 25 mg daily because of history of cirrhosis and to help with hypokalemia induced by torsemide. Hopefully, the patient's creatinine should improve back to his baseline. Hyponatremia - It is most likely hypovolemic hyponatremia. The patient is making a lot of urine for the last three days. I have cut down the diuretic dose. However, I am going to ahead and order the urine osmolarity and urine sodium level. Continue the fluid restriction at two liters per day, and continue low dose of diuretic. History of diastolic congestive heart failure - The patient was on torsemide 40 mg twice a day, metolazone 2.5 mg every other day. I have stopped the metolazone, and combination of torsemide and daily spironolactone should be enough for optimization of patient's volume status. DISCHARGE MEDICATIONS: Please see below. ALLERGIES: Please see below. PHYSICAL EXAMINATION ON DISCHARGE: VITAL SIGNS: Please see below. GENERAL: Obese male, appears stated age, well nourished, well developed, no acute distress HEENT: Atraumatic, normocephalic, PERRL, EOMI, oral mucosa appears pink, but lips are somewhat dry, nasal septum appears midline, nares are patent, edentulous CARDIOVASCULAR: Regular rate and rhythm, normal S1 and S2, no murmur, rub, click RESPIRATORY: Clear to auscultation bilaterally, poor inspiratory and expiratory airway excursion likely due to body habitus, no wheeze, rhonchi, crackles ABDOMINAL: Obese, soft, non-tender, non-distended, bowel sounds appreciated EXTREMITIES: Multiple ecchymoses appreciated on the upper extremities bilaterally, chronic venous stasis dermatitis bilaterally on lower extremities, +3 pitting edema bilaterally up to the thigh, diabetic wound noted on left lower extremity with granulation tissue present, radial pulses appreciated and equal bilaterally, +2 NEUROLOGICAL: CN II-XII grossly intact PSYCHOLOGICAL: Alert and conversant LABORATORY DATA: Please see below. IMAGING: Duplex ultrasound of bilateral lower extremities RIGHT LOWER EXTREMITY: IMPRESSION: There is no deep venous thrombosis. LEFT LOWER EXTREMITY: IMPRESSION: There is no deep venous thrombosis. CT head without contrast IMPRESSION: 1. Small vessel ischemic disease per 2. Moderate volume loss. Portable chest x-ray IMPRESSION: Cardiomegaly. CT abdomen and pelvis with PO contrast only IMPRESSION: 1. The liver is irregular in contour likely secondary to cirrhosis. 2. Bilateral renal atrophy. 3. Small 5 mm left renal cyst. 4. There is a small amount of ascites. CT abdomen and pelvis enterography IMPRESSION: 1. There is evidence of cirrhosis and splenomegaly with recanalized umbilical vein which is quite large and with multiple other abdominal and pelvic varices. 2. There is no ascites or anasarca evident. There is some mild scattered areas of subcutaneous edema in the subcutaneous fat of the abdomen and pelvis. 3. Atrophy of the left kidney with some compensatory hypertrophy on the right. There is severe atherosclerotic calcification of the aorta and calcification in all of its branch origins including the bilateral renal arteries. 4. No dilated small bowel loops or inflammatory changes adjacent to the small bowel and their mesentery. The absence of IV contrast limits sensitivity of the examination for bowel wall thickening or nodularity. The contrast is essentially isodense to the unenhanced bowel. That said, no obstruction, mass, adenopathy or adjacent inflammatory change is seen in the mesentery of the abdomen and pelvis. PROGNOSIS: Stable. ACTIVITY: Walk with walker. DIET: 2g sodium. DISCHARGE PLAN: Problem: Managing health at home Goal: Improve health & wellness Instructions: Follow DC Instruction DISPOSITION: 01 Home, Self-Care. DISCHARGE INSTRUCTIONS: 1. Continue with antibiotic, Cefdinir, for 10 more days. 2. Start taking Spironolactone. 3. Stop taking Metolazone. 4. Change Torsemide to once daily. 5. Change Pantoprazole to twice daily. 6. Continue to take Sucralfate for one more week. 7. Follow-up with primary care provider, Dr. Galeana ([facility]), on pre- scheduled appointment on 07/31/17. 8. Follow-up with nephrology, Dr. Aggarwal, on pre-scheduled appointment on . ITEMS TO FOLLOWUP ON ON OUTPATIENT: 1. Hyponatremia. 2. Symptomatic anemia. 3. Acute blood loss anemia. DISCHARGE CONDITION: Stable. TIME SPENT ON DISCHARGE: Greater than 30 minutes. Vital Signs/I&Os Vital Signs Date Time Temp Pulse Resp B/P (MAP) Pulse Ox O2 Delivery O2 Flow Rate FiO2 07/27/17 09:00 Room Air 07/27/17 09:00 97.1 62 18 161/87 (111) 95 07/24/17 12:34 10 Laboratory Data Labs 24H Laboratory Tests 2 07/28/17 12:06: Lab Scanned Report Transfusion Record Microbiology Microbiology 07/22/17 Blood Culture - Final, Complete NO GROWTH AFTER 5 DAYS 07/22/17 Blood Culture - Final, Complete NO GROWTH AFTER 5 DAYS 07/23/17 Stool Occult Blood (OLE) - Final, Complete 07/22/17 Urine Culture - Final, Complete Escherichia Coli 07/22/17 Wound Culture - Final, Complete Enterobacter Cloacae Complex Streptococcus Viridans Group Staphylococcus Sp Coag Neg Discharge Medications Scheduled Cefdinir (Cefdinir) 300 Mg Cap, 600 MG PO DAILY Cholecalciferol (Vitamin D-1000) 1,000 Unit Tab, 1,000 UNIT PO QHS, (Reported) Febuxostat (Uloric) 40 Mg Tab, 40 MG PO DAILY, (Reported) Ferrous Sulfate (Ferrous Sulfate) 325 Mg Tab, 325 MG PO DAILY, (Reported) Gabapentin (Gabapentin) 100 Mg Cap, 200 MG PO QHS, (Reported) Insulin Aspart (Novolog) 100 U/Ml Inj, 1 DOSE SC AC, (Reported) PER SLIDING SCALE Insulin Glargine (Lantus) 1 Units/0.01 Ml Susp, 70 UNITS SC QHS, (Reported) Isosorbide Mononitrate (Isosorbide Mononitrate ER) 60 Mg Tab, 60 MG PO DAILY Metoprolol Tartrate (Metoprolol Tartrate) 50 Mg Tab, 50 MG PO BID Pantoprazole Sodium (Pantoprazole Sodium) 40 Mg Tab, 40 MG PO BID Simvastatin (Simvastatin) 20 Mg Tab, 10 MG PO QHS, (Reported) Spironolactone (Aldactone) 25 Mg Tab, 25 MG PO QAM Sucralfate (Sucralfate) 1 Gm/10 Ml Mely, 1 GM PO QID Torsemide (Demadex) 20 Mg Tab, 40 MG PO DAILY Trospium Chloride (Trospium Chloride) 20 Mg Tab, 20 MG PO QHS, (Reported) Scheduled PRN Acetaminophen (Acetaminophen) 325 Mg Tab, 650 MG PO Q6H PRN for PAIN, (Reported) Tramadol HCl (Tramadol HCl) 50 Mg Tab, 50 MG PO Q4H PRN for PAIN, (Reported) FOR SEVERE PAIN ONLY Allergies Coded Allergies: No Known Allergies (Unverified , 12/28/15) EBONY DIAZ DO Jul 28, 2017 15:09
== END 2017-07-27 17:03 | disposition home or self-care (01) | DRG 378 ==
LOC: EDBD 04:46 → M ED 04:46 → M ED INP 12:41 → M PCU 15:06 → M MS4PR 07-25 14:30
PROVIDERS: ADMIT Internal Medicine; ATTEND Internal Medicine Nephrology
PROC: 30233N1 Transfusion of Nonautologous Red Blood Cells into Peripheral Vein, Percutaneous Approach (ICD-10-PCS; 2017-07-22)
PROC: 3E0G8TZ Introduction of Destructive Agent into Upper GI, Via Natural or Artificial Opening Endoscopic (ICD-10-PCS; principal; 2017-07-24 12:00)
DX: K92.2 Gastrointestinal hemorrhage, unspecified (principal); E87.2 Acidosis; I50.32 Chronic diastolic (congestive) heart failure; D62 Acute posthemorrhagic anemia; K76.6 Portal hypertension; E87.1 Hypo-osmolality and hyponatremia; N17.9 Acute kidney failure, unspecified; I13.0 Hypertensive heart and chronic kidney disease with heart failure and stage 1 through stage 4 chronic kidney disease, or unspecified chronic kidney disease; N18.3 Chronic kidney disease, stage 3 (moderate); K31.89 Other diseases of stomach and duodenum; E78.5 Hyperlipidemia, unspecified; M10.9 Gout, unspecified; E11.622 Type 2 diabetes mellitus with other skin ulcer; G47.33 Obstructive sleep apnea (adult) (pediatric); Z99.89 Dependence on other enabling machines and devices; Z79.4 Long term (current) use of insulin; Z79.899 Other long term (current) drug therapy

== ENCOUNTER → 2017-08-07 | Outpatient (REF) | payer OTHER ==
[~2017-08-07] MED LIST changes: +CEFD300CAP PO; +SUCR10SS PO
[2017-08-07 15:49] LABS: PERCENT SATURATION 16.8 % (19.7-50.0)
== END ==
LOC: M LAB REF 14:54
PROVIDERS: ATTEND Internal Medicine Nephrology
DX: D50.9 Iron deficiency anemia, unspecified (principal)

== ENCOUNTER 2017-08-21 11:31 | Inpatient (IN) | payer OTHER ==
[2017-08-21 12:09] LABS: BASO % 0.2 % (0.0-1.0); EOS % 0.1 % (0.0-3.0); HEMATOCRIT 18.8 % (42.0-52.0); IMMATURE GRANULOCYTE # 0.1 10^3/uL (0-0); IMMATURE GRANULOCYTE % 0.7 % (0-0); LYMPH # 0.9 10^3/uL (1.5-4.5); LYMPH % 9.3 % (24.0-44.0); MEAN CORPUSCULAR HGB CONC 29.8 g/dl (32.0-36.5); MEAN CORPUSCULAR VOLUME 97.4 fl (80.0-96.0); MONO # 0.7 10^3/uL (0.0-0.8); MONO % 7.6 % (0.0-5.0); NEUTROPHILS # 7.8 10^3/uL (1.8-7.7); NEUTROPHILS % 82.1 % (36.0-66.0); PLATELET COUNT, AUTOMATED 165 10^3/uL (150-450); RED BLOOD COUNT 1.93 10^6/uL (4.30-6.10); RED CELL DISTRIBUTION WIDTH 17.3 % (11.5-14.5); WHITE BLOOD COUNT 9.6 10^3/uL (4.0-10.0)
[2017-08-21 12:12] LABS: ADD MANUAL DIFFER NO; DIFF SLIDE NUMBER 226; HEMOGLOBIN 5.6 g/dl (14.0-18.0)
[2017-08-21 12:24] LABS: AMMONIA 148 uMOL/L (<32)
[2017-08-21] MEDS ORDERED: PANTOPRAZOLE SODIUM 40 MG in D5W 50 ML IV (12:30)
[2017-08-21] MEDS: PANTOPRAZOLE 40MG INJ (PROTONIX) (C9113) IV (12:30)
[2017-08-21 12:33] LABS: ABG BASE EXCESS -2.9 (-2.0-2.0); ABG HCO3 20.9 MEQ/L (22.0-26.0); ABG O2 SATURATION 98.4 % (95.0-99.0); ABG PARTIAL PRESSURE CO2 31.2 mmHg (35.0-45.0); ABG PARTIAL PRESSURE O2 112.7 mmHg (75.0-100.0); ABG TOTAL CO2 21.9 MEQ/L (23.0-31.0); ABG pH (ARTERIAL) 7.444 UNITS (7.350-7.450)
[2017-08-21 12:36] LABS: ALBUMIN 2.4 GM/DL (3.2-5.2); ALBUMIN/GLOBULIN RATIO 0.67 (1.00-1.93); ALKALINE PHOSPHATASE 105 U/L (45-117); ALT/SGPT 30 U/L (12-78); ANION GAP 10 MEQ/L (8-16); AST/SGOT 27 U/L (7-37); BILIRUBIN,DIRECT 0.2 MG/DL (0.0-0.2); BILIRUBIN,TOTAL 0.6 MG/DL (0.2-1.0); BLOOD UREA NITROGEN 50 MG/DL (7-18); CALCIUM LEVEL 8.2 MG/DL (8.8-10.2); CARBON DIOXIDE LEVEL 24 MEQ/L (21-32); CHLORIDE LEVEL 105 MEQ/L (98-107); CPK CREATINE PHOSPHOKINASE 66 U/L (39-308); CREATININE FOR GFR 2.64 MG/DL (0.70-1.30); GLOMERULAR FILTRATION RATE 25.1 (>42); GLUCOSE, FASTING 236 MG/DL (83-110); SODIUM LEVEL 139 MEQ/L (136-145); TROPONIN I 0.22 NG/ML (< 0.10)
[2017-08-21 12:41] LABS: CK-MB VALUE MASS 4.2 NG/ML (0.0-3.6); MB/CK RELATIVE INDEX 6.36 (< OR =4)
[2017-08-21 12:43] LABS: POTASSIUM SERUM 5.2 MEQ/L (3.5-5.1)
[2017-08-21 12:44] LABS: LACTIC ACID SEPSIS PROTOCOL 5.8 MMOL/L (0.4-2.0)
[2017-08-21 13:32] LABS: IMMEDIATE SPIN CROSSMATCH 1 2
[2017-08-21] MEDS: ALBUTEROL SULFATE 2.5 MG/0.5 ML INH NEB SOLN INH (14:00)
[2017-08-21 14:35] LABS: INR 1.35
[2017-08-21] MEDS: FUROSEMIDE 100 MG/10 ML VIAL (J1940) IV ×2 (14:35→17:45)
[2017-08-21] MEDS ORDERED: DEXTROSE 50% 50 ML SYRINGE IV (15:15)
[2017-08-21] MEDS ORDERED: GLUCAGON FOR INJ 1 MG VIAL (J1610) SC (15:15)
[2017-08-21] MEDS ORDERED: ONDANSETRON 4MG/2ML VIAL (J2405) IV (15:15)
[2017-08-21] MEDS ORDERED: GLUCOSE 4 GM CHEW TABLET PO (15:15)
[2017-08-21] MEDS ORDERED: IPRATROPIUM 0.5MG/ALBUTEROL 2.5MG INH SOL UD 3ML (DUONEB)(J7620) NEB (15:45)
[2017-08-21 17:16] LABS: ANION GAP 11 MEQ/L (8-16); BLOOD UREA NITROGEN 56 MG/DL (7-18); CALCIUM LEVEL 7.8 MG/DL (8.8-10.2); CARBON DIOXIDE LEVEL 22 MEQ/L (21-32); CHLORIDE LEVEL 105 MEQ/L (98-107); CPK CREATINE PHOSPHOKINASE 332 U/L (39-308); CREATININE FOR GFR 2.68 MG/DL (0.70-1.30); GLOMERULAR FILTRATION RATE 24.7 (>42); GLUCOSE, FASTING 284 MG/DL (83-110); POTASSIUM SERUM 5.1 MEQ/L (3.5-5.1); SODIUM LEVEL 138 MEQ/L (136-145)
[2017-08-21] MEDS: PANTOPRAZOLE SODIUM 40 MG in D5W 50 ML IV (17:18)
[2017-08-21 17:30] LABS: BEDSIDE GLUCOSE 275 MG/DL (83-110)
[2017-08-21] MEDS: LACTULOSE 20 GM/30 ML SYRUP UD NG (17:30)
[2017-08-21] MEDS: OCTREOTIDE ACETATE 1,200 MCG in NS 238.8 ML IV (17:30)
[2017-08-21] MEDS: HumaLOG INSULIN (NovoLOG) PER UNIT SC (17:30)
[2017-08-21] MEDS ORDERED: FUROSEMIDE 100 MG/10 ML VIAL (J1940) As Ordered (17:35)
[2017-08-21 17:44] LABS: ABG BASE EXCESS -6.8 (-2.0-2.0); ABG HCO3 20.3 MEQ/L (22.0-26.0); ABG O2 SATURATION 93.4 % (95.0-99.0); ABG PARTIAL PRESSURE CO2 48.8 mmHg (35.0-45.0); ABG PARTIAL PRESSURE O2 85.7 mmHg (75.0-100.0); ABG STANDARD HCO3 18.8 MEQ/L (22.0-26.0); ABG TOTAL CO2 21.8 MEQ/L (23.0-31.0)
[2017-08-21 17:45] LABS: ABG pH (ARTERIAL) 7.236 UNITS (7.350-7.450)
[2017-08-21] MEDS: metOLazone 5 MG TAB NG (18:13)
[2017-08-21] MEDS ORDERED: ATROPINE SULFATE 1% OP SOLN 2 ML BTL SL (18:30)
[2017-08-21] MEDS ORDERED: FLEET ENEMA PR (18:30)
[2017-08-21] MEDS: IPRATROPIUM 0.5MG/ALBUTEROL 2.5MG INH SOL UD 3ML (DUONEB)(J7620) NEB (19:09)
[2017-08-21] MEDS: MORPHINE 2 MG/ML 1ML SYRINGE IV ×2 (19:56→21:52)
[2017-08-21] MEDS: SCOPOLAMINE 1MG TRANSDERMAL PATCH TOP (19:57)
[2017-08-21] MEDS ORDERED: TROSPIUM 20 MG TAB NG (21:00)
[2017-08-21] MEDS ORDERED: rifAXIMin 550 MG TAB (XIFAXAN) NG (21:00)
[2017-08-21] MEDS ORDERED: LEVEMIR (INSULIN DETEMIR) 1 UNITS/0.01ML SC (21:00)
[2017-08-21] MEDS: LORazepam 2 MG/ML VIAL (J2060) IV (21:53)
[2017-08-21] MEDS ORDERED: FUROSEMIDE 40 MG/4 ML VIAL (J1940) IV (22:00)
[2017-08-21 23:38] LABS: CK-MB VALUE MASS 21.6 NG/ML (0.0-3.6)
[2017-08-22] MEDS: IPRATROPIUM 0.5MG/ALBUTEROL 2.5MG INH SOL UD 3ML (DUONEB)(J7620) NEB ×4 (02:00→20:00)
[2017-08-22] MEDS: MORPHINE 2 MG/ML 1ML SYRINGE IV ×2 (02:37→23:22)
[2017-08-22] MEDS: LORazepam 2 MG/ML VIAL (J2060) IV ×3 (03:49→23:05)
[2017-08-23] MEDS: IPRATROPIUM 0.5MG/ALBUTEROL 2.5MG INH SOL UD 3ML (DUONEB)(J7620) NEB ×3 (00:47→14:00)
[2017-08-23] MEDS: LORazepam 2 MG/ML VIAL (J2060) IV ×2 (01:16→14:42)
[2017-08-23] MEDS: MORPHINE 2 MG/ML 1ML SYRINGE IV ×3 (01:23→13:36)
== END 2017-08-23 19:30 | disposition expired ==
LOC: M ED 11:31 → M ED INP 15:07 → M ICU 16:00 → M MS5PR 21:14
PROC: 30253N1 (ICD-10-PCS; principal; 2017-08-21)
DX: I21.4 Non-ST elevation (NSTEMI) myocardial infarction (principal); K72.00 Acute and subacute hepatic failure without coma; I50.31 Acute diastolic (congestive) heart failure; I85.11 Secondary esophageal varices with bleeding; J96.91 Respiratory failure, unspecified with hypoxia; J96.92 Respiratory failure, unspecified with hypercapnia; D62 Acute posthemorrhagic anemia; E87.2 Acidosis; I13.0 Hypertensive heart and chronic kidney disease with heart failure and stage 1 through stage 4 chronic kidney disease, or unspecified chronic kidney disease; K76.6 Portal hypertension; N17.9 Acute kidney failure, unspecified; Z68.42 Body mass index [BMI] 45.0-49.9, adult; Z51.5 Encounter for palliative care; Z66 Do not resuscitate; E11.22 Type 2 diabetes mellitus with diabetic chronic kidney disease; G47.33 Obstructive sleep apnea (adult) (pediatric); E78.5 Hyperlipidemia, unspecified; E66.01 Morbid (severe) obesity due to excess calories; N18.3 Chronic kidney disease, stage 3 (moderate); K74.60 Unspecified cirrhosis of liver; K31.89 Other diseases of stomach and duodenum; Z79.4 Long term (current) use of insulin; Z79.899 Other long term (current) drug therapy; Z79.891 Long term (current) use of opiate analgesic